=== PATIENT | male | born 1965 | race Caucasian/White ===

== ENCOUNTER 2018-03-04 22:17 | Observation (INO) | payer BC ==
[2018-03-04] MEDS ORDERED: PROVENTIL 2.5 MG/3 ML NEB IH ONE ×4 (22:27→23:52)
[2018-03-04 22:35] LABS: BASOPHIL % 0.7 % (0.0-0.4); Basophil (Absolute #) 0.06 (0-0.4); Eosinophil % 0.7 % (0.00-5.0); Eosinophil (Absolute #) 0.06 (0-0.5); Granulocyte Absolute (ANC) 4.37 (1.4-6.9); Granulocytes % 47.4 % (36.0-66.0); Hematocrit 51.2 % (42-50); Hemoglobin 17.9 gm/dl (12.5-18.0); Lymphocyte (Absolute #) 3.96 (1.0-4.6); Lymphocytes % 43.1 % (24.0-44.0); Mean Platelet Volume 10.6 fl (6-9.5); Monocyte (Absolute #) 0.74 (0.0-1.3); Monocytes % 8.1 % (0.0-12.0); Platelet Count 206 K/mm3 (150-450); Red Blood Count 5.69 M/mm3 (4.1-5.6); Red Cell Distribution Width 12.7 % (11.5-14.0); White Blood Count 9.2 K/mm3 (4.0-10.5)
[2018-03-04] MEDS: Sodium Chloride 0.9% 1000 ML 1,000 ML IV SCH (22:36)
--- NOTE | 2018-03-04 22:43 | ERPHSYRPT ---
- History of Present Illness Time Seen by Provider: 03/04/18 22:39 Source: patient Exam Limitations: no limitations Patient Subjective Stated Complaint: SOB at night x2 days Triage Nursing Assessment: pt is alert and oriented. pt is ambulatory. pt has audible wheezes and pt has wheezing and crackles posteriorly. pt is tachycardic and irregular. pt has a swollen left leg and ankle pitting edema x1. Physician History: 52-year-old male came to the emergency room with complaining of shortness of breath for last 2 days. He should has been recently diagnosed with hemochromatosis and for which patient has been undergoing blood letting. Patient is also complaining of palpitation and shortness of breath, but denies any heavy pressure type of chest pain. Patient also denies fevers, chills, nausea or vomiting. Timing/Duration: day(s) Activities at Onset: none Severity of Dyspnea-Max: moderate Severity of Dyspnea-Current: moderate Possible Cause: frequent episodes Associated Symptoms: wheezing, ankle swelling, leg swelling International travel in last 2 weeks: No Allergies/Adverse Reactions: No Known Drug Allergies Allergy (Unverified 03/04/18 22:34) Home Medications: Aspirin EC 81 mg [Ecotrin 81 mg] 81 mg PO DAILY 03/04/18 [History] Atorvastatin Calcium 40 mg PO DAILY 03/04/18 [History] Dulaglutide [Trulicity] 1.5 ml IJ WEEKLY 03/04/18 [History] Metformin HCl 500 mg [Glucophage 500 MG] 1,000 mg PO BID 03/04/18 [History ] PANTOPRAZOLE 40 mg Tablet [Protonix 40MG Tablet] 40 mg PO DAILY 03/04/18 [ History] Paroxetine HCl [Paroxetine Cr] 37.5 mg PO DAILY 03/04/18 [History] Triamterene/Hydrochlorothiazid [Triamterene-Hctz 37.5-25 mg Cp] 1 each PO DAILY 03/04/18 [History] Hx Tetanus, Diphtheria Vaccination/Date Given: Yes Hx Influenza Vaccination/Date Given: Yes Hx Pneumococcal Vaccination/Date Given: No Immunizations Up to Date: Yes - Review of Systems Constitutional: No Fever, No Chills Eyes: No Symptoms Ears, Nose, & Throat: No Symptoms Respiratory: Dyspnea, Dyspnea on Exertion (LIN), Wheezing, No Cough Cardiac: Edema, No Chest Pain, No Syncope Abdominal/Gastrointestinal: No Abdominal Pain, No Nausea, No Vomiting, No Diarrhea Genitourinary Symptoms: No Dysuria Musculoskeletal: No Back Pain, No Neck Pain Skin: No Rash Neurological: No Dizziness, No Focal Weakness, No Sensory Changes Psychological: No Symptoms Endocrine: No Symptoms All Other Systems: Reviewed and Negative - Past Medical History Pertinent Past Medical History: Yes Neurological History: No Pertinent History ENT History: No Pertinent History Cardiac History: Hypertension Respiratory History: COPD Endocrine Medical History: Diabetes Type II Musculoskeletal History: Arthritis GI Medical History: No Pertinent History History: No Pertinent History Psycho-Social History: Anxiety Male Reproductive Disorders: No Pertinent History - Past Surgical History Past Surgical History: Yes Neuro Surgical History: No Pertinent History Cardiac: No Pertinent History Gastrointestinal: No Pertinent History Genitourinary: No Pertinent History Musculoskeletal: Orthopedic Surgery Male Surgical History: No Pertinent History Other Surgical History: left and right shoulder surgery. - Social History Smoking Status: Current every day smoker Drug Use: none - Nursing Vital Signs Nursing Vital Signs: Initial Vital Signs Temperature 97.4 F 03/04/18 22:18 Pulse Rate 154 H 03/04/18 22:18 Respiratory Rate 22 03/04/18 22:18 Blood Pressure 109/95 03/04/18 22:18 O2 Sat by Pulse Oximetry 96 03/04/18 22:18 Pain Scale Pain Intensity 0 - Physical Exam General Appearance: no apparent distress, alert Eye Exam: PERRL/EOMI Neck Exam: normal inspection, supple Respiratory Exam: diminished breath sounds, crackles/rales, rhonchi, wheezing Cardiovascular/Chest Exam: normal heart sounds, regular rate/rhythm, edema Abdominal/Gastrointestinal Exam: soft, No tenderness, No distention, No mass Extremity Exam: non-tender, normal range of motion, normal inspection, no calf tenderness, no pedal edema Neurologic Exam: alert, oriented x 3, cooperative, wood coater II-XII nml as tested, sensation nml, No motor deficits Skin Exam: normal color, warm, No dry SpO2 Interpretation: normal SpO2: 96 Oxygen Delivery: Nasal Cannula - Course Nursing assessment & vital signs reviewed: Yes EKG Interpreted by Me: A-fib Rhythm Strip: Atrial Fibrillation - Radiology Exams Chest X-ray Interpretation: Reviewed by me Ordered Tests: Active Orders 24 hr Category Date Time Status Corporate General Manager STAT Care 03/04/18 22:28 Active EKG-ER Only STAT Care 03/04/18 22:27 Active IV Insertion STAT Care 03/04/18 22:27 Active IV Insertion-2nd Peripheral STAT Care 03/04/18 23:15 Active Oxygen-ED Only NASAL CANNULA 2 lpm Care 03/04/18 22:27 Active CHEST 1 VIEW (PORTABLE) Stat Exams 03/04/18 22:27 Taken CHEST WITH CONTRAST [CT] Stat Exams 03/04/18 23:14 Ordered BLOOD CULTURE Stat Lab 03/04/18 22:45 Received CBC W DIFF Stat Lab 03/04/18 22:30 Completed CMP Stat Lab 03/04/18 22:30 Completed D-DIMER QUANTITATION Stat Lab 03/04/18 22:30 Completed Lactic Acid Stat Lab 03/04/18 22:44 Completed NT PRO BNP Stat Lab 03/04/18 22:30 Completed TROPONIN Q3H Lab 03/04/18 22:31 Completed TROPONIN Q3H Lab 03/05/18 01:30 Ordered TROPONIN Q3H Lab 03/05/18 04:30 Ordered TROPONIN Q3H Lab 03/05/18 07:30 Ordered TROPONIN Q3H Lab 03/05/18 10:30 Ordered UA W/ MICROSCOPIC Stat Lab 03/04/18 00:09 Completed Respiratory Nebulizer STAT RT 03/04/18 22:28 Completed Respiratory Nebulizer STAT RT 03/04/18 23:53 Completed Transfer Order Routine Transfer 03/05/18 Ordered Medication Summary Generic Name Dose Route Start Last Admin Trade Name Freq PRN Reason Stop Dose Admin Sodium Chloride 1,000 mls @ 100 mls/hr 03/04/18 22:30 03/04/18 22:36 Sodium Chloride 0.9% 1000 Ml IV 04/03/18 22:29 100 mls/hr .Q10H YANG Administration Diltiazem HCl 100 mls @ 5 mls/hr 03/05/18 00:32 Cardizem Drip 100 Mg/100 Ml D5w IV 04/04/18 00:31 .Q20H PRN HEART RATE/ A-FIB Protocol 5 MG/HR Discontinued Medications Generic Name Dose Route Start Last Admin Trade Name Freq PRN Reason Stop Dose Admin Albuterol Sulfate 2.5 mg 03/04/18 22:27 03/04/18 22:32 Proventil 2.5 Mg/3 Ml Neb IH 03/04/18 22:28 2.5 mg STAT ONE Administration Albuterol Sulfate Confirm 03/04/18 22:31 Proventil 2.5 Mg/3 Ml Neb Administered 03/04/18 22:32 Dose 2.5 mg IH .STK-MED ONE Albuterol Sulfate Confirm 03/04/18 23:29 Proventil 2.5 Mg/3 Ml Neb Administered 03/04/18 23:30 Dose 2.5 mg IH .STK-MED ONE Albuterol Sulfate 2.5 mg 03/04/18 23:52 03/05/18 00:23 Proventil 2.5 Mg/3 Ml Neb IH 03/04/18 23:53 2.5 mg STAT ONE Administration Diltiazem HCl 10 mg 03/04/18 22:47 03/04/18 22:54 Cardizem Iv 50 Mg/10 Ml IV 03/04/18 22:48 10 mg STAT ONE Administration Diltiazem HCl Confirm 03/04/18 22:50 Cardizem Iv 50 Mg/10 Ml Administered 03/04/18 22:51 Dose 50 mg IV .STK-MED ONE Lab/Rad Data: Laboratory Result Diagrams 03/04/18 22:30 03/04/18 22:30 Laboratory Results 03/04/18 03/04/18 03/04/18 Range/Units 22:44 22:31 22:30 WBC (4.0-10.5) K/mm3 RBC (4.1-5.6) M/mm3 Hgb (12.5-18.0) gm/dl Hct (42-50) % MCV (78-100) fl MCH (26-32) pg MCHC (32-36) g/dl RDW (11.5-14.0) % Plt Count (150-450) K/mm3 MPV (6-9.5) fl Gran % (36.0-66.0) % Eos # (Auto) (0-0.5) Absolute Lymphs (auto) (1.0-4.6) Absolute Monos (auto) (0.0-1.3) Lymphocytes % (24.0-44.0) % Monocytes % (0.0-12.0) % Eosinophils % (0.00-5.0) % Basophils % (0.0-0.4) % Absolute Granulocytes (1.4-6.9) Basophils # (0-0.4) D-Dimer 1311.17 H* (215-500) ng/mL Sodium (137-145) mmol/L Potassium (3.5-5.1) mmol/L Chloride (98-107) mmol/L Carbon Dioxide (22-30) mmol/L Anion Gap (5-15) MEQ/L BUN (9-20) mg/dL Creatinine (0.66-1.25) mg/dL Estimated GFR ML/MIN Glucose (74-106) mg/dL Lactic Acid 2.6 H (0.4-2.0) Calcium (8.4-10.2) mg/dL Total Bilirubin (0.2-1.3) mg/dL AST (17-59) U/L ALT (0-50) U/L Alkaline Phosphatase (38-126) U/L Troponin I 0.024 (0.000-0.034) ng/mL NT-Pro-B Natriuret Pep (0-900) pg/mL Serum Total Protein (6.3-8.2) g/dL Albumin (3.5-5.0) g/dL Ur Collection Type Urine Color (YELLOW) Urine Appearance (CLEAR) Urine pH (5-6) Ur Specific [place] (1.005-1.025) Urine Protein (Negative) Urine Ketones (NEGATIVE) Urine Blood (0-5) Jose/ul Urine Nitrite (NEGATIVE) Urine Bilirubin (NEGATIVE) Urine Urobilinogen (0-1) mg/dL Ur Leukocyte Esterase (NEGATIVE) Urine Microscopic RBC (0-2) /HPF Urine Microscopic WBC (0-5) /HPF Urine Bacteria (NEGATIVE) /HPF Urine Culture Reflexed (NO) Urine Glucose (NEGATIVE) mg/dL Specimen Received 03/04/18 03/04/18 03/04/18 Range/Units 22:30 22:30 00:09 WBC 9.2 (4.0-10.5) K/mm3 RBC 5.69 H (4.1-5.6) M/mm3 Hgb 17.9 (12.5-18.0) gm/dl Hct 51.2 H (42-50) % MCV 90.0 (78-100) fl MCH 31.4 (26-32) pg MCHC 35.0 (32-36) g/dl RDW 12.7 (11.5-14.0) % Plt Count 206 (150-450) K/mm3 MPV 10.6 H (6-9.5) fl Gran % 47.4 (36.0-66.0) % Eos # (Auto) 0.06 (0-0.5) Absolute Lymphs (auto) 3.96 (1.0-4.6) Absolute Monos (auto) 0.74 (0.0-1.3) Lymphocytes % 43.1 (24.0-44.0) % Monocytes % 8.1 (0.0-12.0) % Eosinophils % 0.7 (0.00-5.0) % Basophils % 0.7 (0.0-0.4) % Absolute Granulocytes 4.37 (1.4-6.9) Basophils # 0.06 (0-0.4) D-Dimer (215-500) ng/mL Sodium 126 L (137-145) mmol/L Potassium 4.0 (3.5-5.1) mmol/L Chloride 91 L (98-107) mmol/L Carbon Dioxide 20 L (22-30) mmol/L Anion Gap 18.1 H (5-15) MEQ/L BUN 8 L (9-20) mg/dL Creatinine 0.64 L (0.66-1.25) mg/dL Estimated GFR > 60.0 ML/MIN Glucose 122 H (74-106) mg/dL Lactic Acid (0.4-2.0) Calcium 8.8 (8.4-10.2) mg/dL Total Bilirubin 0.70 (0.2-1.3) mg/dL AST 33 (17-59) U/L ALT 24 (0-50) U/L Alkaline Phosphatase 70 (38-126) U/L Troponin I (0.000-0.034) ng/mL NT-Pro-B Natriuret Pep 3380 H (0-900) pg/mL Serum Total Protein 7.3 (6.3-8.2) g/dL Albumin 4.0 (3.5-5.0) g/dL Ur Collection Type VOID Urine Color YELLOW (YELLOW) Urine Appearance CLEAR (CLEAR) Urine pH 6.0 (5-6) Ur Specific [place] 1.010 (1.005-1.025) Urine Protein TRACE (Negative) Urine Ketones NEGATIVE (NEGATIVE) Urine Blood NEGATIVE (0-5) Jose/ul Urine Nitrite NEGATIVE (NEGATIVE) Urine Bilirubin NEGATIVE (NEGATIVE) Urine Urobilinogen NORMAL (0-1) mg/dL Ur Leukocyte Esterase NEGATIVE (NEGATIVE) Urine Microscopic RBC 2-5 (0-2) /HPF Urine Microscopic WBC 0-2 (0-5) /HPF Urine Bacteria FEW (NEGATIVE) /HPF Urine Culture Reflexed NO (NO) Urine Glucose NEGATIVE (NEGATIVE) mg/dL Specimen Received 03/04/18 2350 - Progress Progress: improved Air Movement: good Blood Culture(s) Obtained: No Antibiotics given: No Discussed with : Nano Henson Will see patient in: hospital (observation) Counseled pt/family regarding: lab results, diagnosis, need for follow-up, rad results - Departure Time of Disposition: 00:56 Departure Disposition: Observation Clinical Impression: COPD (chronic obstructive pulmonary disease) with acute bronchitis Atrial fibrillation Qualifiers: Atrial fibrillation type: paroxysmal Qualified Code(s): I48.0 - Paroxysmal atrial fibrillation Condition: Fair Critical Care Time: Yes Critical Care Time(excluding separately billable procedures): 30-74 minutes Referrals: BAYLEE RUIZ [Primary Care Provider] - Instructions: Chronic Obstructive Pulmonary Disease
[2018-03-04 22:46] LABS: Mean Corpuscular Hemoglobin 31.4 pg (26-32)
[2018-03-04] MEDS ORDERED: Cardizem IV 50 MG/10 ML IV ONE ×2 (22:47→22:50)
[2018-03-04 22:50] LABS: Lactic Acid 2.6 (0.4-2.0)
[2018-03-04 22:53] LABS: ALKALINE PHOSPHATASE 70 U/L (38-126); ANION GAP 18.1 MEQ/L (5-15); BLOOD UREA NITROGEN 8 mg/dL (9-20); CHLORIDE 91 mmol/L (98-107); Calcium 8.8 mg/dL (8.4-10.2); Carbon Dioxide 20 mmol/L (22-30); Creatinine 1 0.64 mg/dL (0.66-1.25); Glucose 122 mg/dL (74-106); SGOT/AST 33 U/L (17-59); SGPT/ALT 24 U/L (0-50); SODIUM 126 mmol/L (137-145); Total Protein 7.3 g/dL (6.3-8.2)
[2018-03-04 23:02] LABS: NT PRO BNP 3380 pg/mL (0-900)
[2018-03-05 00:22] LABS: Appearance CLEAR (CLEAR); Bilirubin NEGATIVE (NEGATIVE); Blood NEGATIVE Ery/ul (0-5); Glucose NEGATIVE (NEGATIVE); Ketones NEGATIVE (NEGATIVE); Leukocyte Esterase NEGATIVE (NEGATIVE); Nitrite NEGATIVE (NEGATIVE); Protein,Urine Dip TRACE (Negative); Urobilinogen NORMAL mg/dL (0-1); WBC 0-2 /HPF (0-5)
[2018-03-05 00:23] LABS: Bacteria FEW /HPF (NEGATIVE)
[2018-03-05] MEDS ORDERED: CARDIZEM DRIP 100 MG/100 ML D5W 100 ML IV PRN (00:32)
[2018-03-05 01:20] LABS: Lactic Acid 2.4 (0.4-2.0)
[2018-03-05] MEDS ORDERED: PROVENTIL Solution 2.5 MG/0.5 ML IH ONE (02:36)
[2018-03-05] MEDS: Sodium Chloride 0.9% 1000 ML 1,000 ML IV SCH ×4 (03:19→18:58)
[2018-03-05 04:52] LABS: Lactic Acid 2.4 (0.4-2.0)
[2018-03-05 05:17] LABS: ALBUMIN 3.4 g/dL (3.5-5.0); ALKALINE PHOSPHATASE 57 U/L (38-126); ANION GAP 16.3 MEQ/L (5-15); BLOOD UREA NITROGEN 8 mg/dL (9-20); CHLORIDE 97 mmol/L (98-107); Calcium 8.2 mg/dL (8.4-10.2); Carbon Dioxide 21 mmol/L (22-30); Creatinine 1 0.64 mg/dL (0.66-1.25); Glucose 111 mg/dL (74-106); Potassium 3.4 mmol/L (3.5-5.1); SGOT/AST 28 U/L (17-59); SGPT/ALT 21 U/L (0-50); SODIUM 131 mmol/L (137-145); Total Protein 6.4 g/dL (6.3-8.2)
[2018-03-05 05:24] LABS: PREALBUMIN 16.97 mg/dL (17.6-36.0)
[2018-03-05 05:46] LABS: BASOPHIL % 0.7 % (0.0-0.4); Basophil (Absolute #) 0.05 (0-0.4); Eosinophil (Absolute #) 0.07 (0-0.5); Granulocyte Absolute (ANC) 2.76 (1.4-6.9); Granulocytes % 37.7 % (36.0-66.0); Hematocrit 48.3 % (42-50); Hemoglobin 16.6 gm/dl (12.5-18.0); Lymphocyte (Absolute #) 3.78 (1.0-4.6); Lymphocytes % 51.6 % (24.0-44.0); Mean Cell Volume 91.5 fl (78-100); Mean Corpuscular Hemoglobin 31.4 pg (26-32); Mean Corpuscular Hgb Concent. 34.4 g/dl (32-36); Mean Platelet Volume 10.9 fl (6-9.5); Monocyte (Absolute #) 0.66 (0.0-1.3); Platelet Count 181 K/mm3 (150-450); Red Blood Count 5.28 M/mm3 (4.1-5.6); Red Cell Distribution Width 12.6 % (11.5-14.0); White Blood Count 7.3 K/mm3 (4.0-10.5)
[2018-03-05] MEDS ORDERED: DUONEB 0.5-3 MG/3 ml Neb IH SCH (07:00)
[2018-03-05] MEDS: PROVENTIL COMMON CANISTER IH SCH ×4 (07:46→18:58)
[2018-03-05] MEDS: Spiriva 18 Mcg/Cap Inhaler IH SCH (07:46)
[2018-03-05] MEDS: ELIQUIS 5 MG TABLET PO SCH ×2 (08:12→21:01)
[2018-03-05] MEDS: ROCEPHIN 1 Gm-D5w 50 ml Bag** 1 G/50 ML IVPB IV SCH (08:12)
[2018-03-05] MEDS: Maxzide-25MG Tablet PO SCH (09:48)
[2018-03-05] MEDS: ECOTRIN 81 MG PO SCH (09:48)
[2018-03-05] MEDS: Paxil 12.5MG CR PO SCH (09:48)
[2018-03-05] MEDS ORDERED: MEDICATION INTERVENTION MC SCH (10:00)
[2018-03-05] MEDS ORDERED: ENOXAPARIN SODIUM SQ SCH (10:00)
[2018-03-05] MEDS ORDERED: PROTONIX 40 MG IV IV SCH (10:00)
[2018-03-05] MEDS ORDERED: Cardizem CD 120 MG PO SCH (10:00)
[2018-03-05] MEDS ORDERED: LIPITOR 40MG PO SCH (10:00)
[2018-03-05] MEDS ORDERED: NON-FORMULARY ITEM (Triamterene/Hydrochlorothiazid [Triamterene-Hctz 37.5-25 Mg Cp] 1 EACH PO SCH (10:00)
[2018-03-05] MEDS ORDERED: Glucophage 500 MG PO SCH (10:00)
--- NOTE | 2018-03-05 12:38 | XRAY ---
Indication: Short of breath. Comparison: None Portable chest demonstrates lingular subsegmental atelectasis/scarring, tiny bibasilar effusions, and left upper lobe calcified granulomas. Heart is not enlarged. Bony thorax intact with right glenoid orthopedic screw. Impression: Tiny nonspecific bibasilar effusions without cardiomegaly. Evidence for old granulomatous disease.
--- NOTE | 2018-03-05 12:38 | XRAY ---
Indication: Short of breath 2 weeks. Elevated d-dimer. History COPD. Multiple contiguous axial images obtained through the chest using 80 cc Isovue 370 contrast and PE protocol. Comparison: None There is satisfactory opacification of the pulmonary arteries including the lobar and segmental branches. No filling defect or pulmonary embolus. Heart is not enlarged. Aorta is normal in course and caliber. A few tiny mediastinal and left hilar calcified nodes. No pathologic mediastinal/hilar lymphadenopathy. Small hiatal hernia. Examination of the lung parenchyma demonstrates minimal septal thickening, small bilateral pleural effusions, and bibasilar dependent atelectasis. A few tiny left upper lobe calcified granulomas. 4-5 mm noncalcified nodule in the posterior left upper lobe also presumed granulomatous. Bony thorax intact with right glenoid orthopedic screw. Limited upper abdomen demonstrates fatty liver. Impression: 1. Negative pulmonary embolus. 2. Small nonspecific bilateral pleural effusions without cardiomegaly. 3. Evidence for old granulomatous disease. 4. Small hiatal hernia and fatty liver. Comment: Preliminary interpretation was made by [facility]. No critical discrepancy. CTDI 28.13
[2018-03-05] MEDS: NICODERM CQ 14 MG TOP SCH (14:26)
[2018-03-05] MEDS: Ativan 1 MG PO PRN ×2 (15:20→21:01)
[2018-03-05] MEDS: Cardizem CD 240 MG PO SCH (15:20)
[2018-03-05] MEDS ORDERED: PATIENT OWN MEDICATION SQ SCH (16:15)
[2018-03-05] MEDS ORDERED: TYLENOL EXTRA STRENGTH 500 MG PO PRN (18:21)
--- NOTE | 2018-03-05 20:16 | PCM.HP ---
History of Present Illness - Chief Complaint Chief Complaint: Shortness of Breath for 2-3 days History of Present Illness: is a 52 year old male came to the emergency room with complaining of shortness of breath for last 2 days. He should has been recently diagnosed with hemochromatosis and for which patient has been undergoing blood letting. Patient is also complaining of palpitation and shortness of breath, but denies any heavy pressure type of chest pain. Patient also denies fevers, chills, nausea or vomiting. Timing/Duration: day(s) Activities at Onset: none Severity of Dyspnea-Max: moderate Severity of Dyspnea-Current: moderate Possible Cause: frequent episodes Associated Symptoms: wheezing, ankle swelling, leg swelling - Review of Systems Constitutional: Fatigue, No Fever, No Chills Eyes: No Symptoms Ears, Nose, & Throat: No Symptoms Respiratory: Orthopnea, Short Of Breath, No Cough Cardiac: Palpitations, No Chest Pain, No Edema, No Syncope Abdominal/Gastrointestinal: No Abdominal Pain, No Nausea, No Vomiting, No Diarrhea Genitourinary Symptoms: No Dysuria Musculoskeletal: No Back Pain, No Neck Pain Skin: No Rash Neurological: No Dizziness, No Focal Weakness, No Sensory Changes Psychological: No Symptoms Endocrine: No Symptoms Hematologic/Lymphatic: No Symptoms Immunological/Allergic: No Symptoms Medications & Allergies Home Medications: Home Medication List Aspirin EC 81 mg [Ecotrin 81 mg] 81 mg PO DAILY 03/04/18 [History Confirmed 03/04/18] Atorvastatin Calcium 40 mg PO DAILY 03/04/18 [History Confirmed 03/04/18] Dulaglutide [Trulicity] 1.5 ml IJ WEEKLY 03/04/18 [History Confirmed 03/05/18] Metformin HCl 500 mg [Glucophage 500 MG] 1,000 mg PO BID 03/04/18 [ History Confirmed 03/04/18] PANTOPRAZOLE 40 mg Tablet [Protonix 40MG Tablet] 40 mg PO DAILY 03/04/18 [ History Confirmed 03/04/18] Paroxetine HCl [Paroxetine Cr] 37.5 mg PO DAILY 03/04/18 [History Confirmed 03/17] Triamterene/Hydrochlorothiazid [Triamterene-Hctz 37.5-25 mg Cp] 1 each PO DAILY 03/04/18 [History Confirmed 03/04/18] Allergies/Adverse Reactions: Allergies Allergy/AdvReac Type Severity Reaction Status Date / Time No Known Drug Allergies Allergy Unverified 03/04/18 22:34 - Past Medical History Past Medical History: Yes Neurological History: No Pertinent History ENT History: No Pertinent History Cardiac History: Hypertension Respiratory History: COPD Endocrine Medical History: Diabetes Type II Musculoskelatal History: Arthritis GI Medical History: GERD History: No Pertinent History Pyscho-Social History: Anxiety Male Reproductive Disorders: No Pertinent History - Past Surgical History Past Surgical History: Yes Neuro Surgical History: No Pertinent History Cardiac History: No Pertinent History Respiratory Surgery: No Pertinent History GI Surgical History: No Pertinent History Genitourinary Surgical Hx: No Pertinent History Musculskeletal Surgical Hx: Orthopedic Surgery Male Surgical History: No Pertinent History Other Surgical History: left and right shoulder surgery - Social History Smoking Status: Current every day smoker How long have you smoked: 20 years Alcohol: Daily Drug Use: none - Physical Exam Vital Signs: Vital Signs - 24 hr Temp Pulse Resp BP BP Pulse Ox 03/05/18 20:00 101 H 03/05/18 19:58 98.2 F 101 H 23 134/90 94 L 03/05/18 18:59 100 H 28 H 94 L 03/05/18 18:50 88 21 119/79 92 L 03/05/18 17:56 112 H 21 130/93 93 L 03/05/18 17:00 94 H 19 116/83 91 L 03/05/18 16:00 96 H 19 164/73 94 L 03/05/18 15:42 96 H 18 95 03/05/18 15:00 92 H 21 133/78 93 L 03/05/18 14:00 99 H 21 116/75 93 L 03/05/18 13:00 110 H 21 127/85 93 L 03/05/18 12:00 98 F 98 H 21 115/77 93 L 03/05/18 11:00 98 H 20 102/78 95 03/05/18 10:42 114 H 20 93 L 03/05/18 09:55 106 H 20 104/81 94 L 03/05/18 08:56 101 H 20 100/80 94 L 03/05/18 07:56 121 H 17 121/72 95 03/05/18 07:33 100 H 03/05/18 07:00 92 H 22 105/89 93 L 03/05/18 04:33 105 H 25 H 108/69 93 L 03/05/18 03:36 112 H 23 130/92 95 03/05/18 02:50 105 H 24 94 L 03/05/18 01:54 97.5 F 106 H 22 118/87 90 L 03/05/18 01:28 122 H 18 121/102 03/05/18 01:27 121 H 121/102 03/05/18 00:57 96 03/05/18 00:50 116/94 03/05/18 00:28 109 H 22 145/72 97 03/05/18 00:23 119 H 22 97 03/04/18 22:58 128 H 20 100/86 93 L 03/04/18 22:48 140 H 20 140/117 94 L 03/04/18 22:32 137 H 22 95 03/04/18 22:18 97.4 F 154 H 22 109/95 95 Oxygen-Last 24 hours O2 Percentage 3 Liters = 32% O2 Percentage 3 Liters = 32% O2 Percentage 3 Liters = 32% O2 Percentage 3 Liters = 32% O2 Percentage 3 Liters = 32% O2 Percentage 3 Liters = 32% O2 Percentage 3 Liters = 32% O2 Percentage 3 Liters = 32% O2 Percentage 3 Liters = 32% O2 Percentage 3 Liters = 32% O2 Percentage 3 Liters = 32% O2 Percentage 3 Liters = 32% O2 Percentage 4 Liters = 36% O2 Percentage 4 Liters = 36% O2 Percentage 4 Liters = 36% O2 Percentage 4 Liters = 36% O2 Percentage 3 Liters = 32% O2 Percentage 2 Liters = 28% O2 Percentage 2 Liters = 28% O2 Percentage 2 Liters = 28% General Appearance: no apparent distress, alert Neurologic Exam: alert, oriented x 3, cooperative, normal mood/affect, nml cerebellar function, nml station & gait, sensation nml, No motor deficits Eye Exam: PERRL/EOMI, eyes nml inspection Ears, Nose, Throat Exam: normal ENT inspection, TMs normal, pharynx normal, moist mucous membranes Neck Exam: normal inspection, non-tender, supple, full range of motion Respiratory Exam: normal breath sounds, wheezing, No respiratory distress Cardiovascular Exam: regular rate/rhythm, normal peripheral pulses, tachycardia , irregular Gastrointestinal/Abdomen Exam: soft, normal bowel sounds, No tenderness, No mass Back Exam: normal inspection, normal range of motion, No CVA tenderness, No vertebral tenderness Extremity Exam: normal inspection, normal range of motion, pelvis stable Skin Exam: normal color, warm, dry, No rash Lymphatic Exam: No adenopathy Results - Labs Lab/Micro Results: Accuchecks Date 03/05/18 Time 20:01 Accucheck Value: 100 Lab Results-Last 24 Hours 03/05/18 03/05/18 03/05/18 Range/Units 04:45 04:50 04:50 WBC 7.3 (4.0-10.5) K/mm3 RBC 5.28 (4.1-5.6) M/mm3 Hgb 16.6 (12.5-18.0) gm/dl Hct 48.3 (42-50) % MCV 91.5 (78-100) fl MCH 31.4 (26-32) pg MCHC 34.4 (32-36) g/dl RDW 12.6 (11.5-14.0) % Plt Count 181 (150-450) K/mm3 MPV 10.9 H (6-9.5) fl Gran % 37.7 (36.0-66.0) % Eos # (Auto) 0.07 (0-0.5) Absolute Lymphs (auto) 3.78 (1.0-4.6) Absolute Monos (auto) 0.66 (0.0-1.3) Lymphocytes % 51.6 H (24.0-44.0) % Monocytes % 9.0 (0.0-12.0) % Eosinophils % 1.0 (0.00-5.0) % Basophils % 0.7 (0.0-0.4) % Absolute Granulocytes 2.76 (1.4-6.9) Basophils # 0.05 (0-0.4) Sodium (137-145) mmol/L Potassium (3.5-5.1) mmol/L Chloride (98-107) mmol/L Carbon Dioxide (22-30) mmol/L Anion Gap (5-15) MEQ/L BUN (9-20) mg/dL Creatinine (0.66-1.25) mg/dL Estimated GFR ML/MIN Glucose (74-106) mg/dL Lactic Acid 2.4 H (0.4-2.0) Calcium (8.4-10.2) mg/dL Total Bilirubin (0.2-1.3) mg/dL AST (17-59) U/L ALT (0-50) U/L Alkaline Phosphatase (38-126) U/L Troponin I 0.023 (0.000-0.034) ng/mL Serum Total Protein (6.3-8.2) g/dL Albumin (3.5-5.0) g/dL Prealbumin (17.6-36.0) mg/dL 03/05/18 03/05/18 03/05/18 Range/Units 04:50 07:30 10:32 WBC (4.0-10.5) K/mm3 RBC (4.1-5.6) M/mm3 Hgb (12.5-18.0) gm/dl Hct (42-50) % MCV (78-100) fl MCH (26-32) pg MCHC (32-36) g/dl RDW (11.5-14.0) % Plt Count (150-450) K/mm3 MPV (6-9.5) fl Gran % (36.0-66.0) % Eos # (Auto) (0-0.5) Absolute Lymphs (auto) (1.0-4.6) Absolute Monos (auto) (0.0-1.3) Lymphocytes % (24.0-44.0) % Monocytes % (0.0-12.0) % Eosinophils % (0.00-5.0) % Basophils % (0.0-0.4) % Absolute Granulocytes (1.4-6.9) Basophils # (0-0.4) Sodium 131 L (137-145) mmol/L Potassium 3.4 L (3.5-5.1) mmol/L Chloride 97 L (98-107) mmol/L Carbon Dioxide 21 L (22-30) mmol/L Anion Gap 16.3 H (5-15) MEQ/L BUN 8 L (9-20) mg/dL Creatinine 0.64 L (0.66-1.25) mg/dL Estimated GFR > 60.0 ML/MIN Glucose 111 H (74-106) mg/dL Lactic Acid (0.4-2.0) Calcium 8.2 L (8.4-10.2) mg/dL Total Bilirubin 0.60 (0.2-1.3) mg/dL AST 28 (17-59) U/L ALT 21 (0-50) U/L Alkaline Phosphatase 57 (38-126) U/L Troponin I 0.018 0.017 (0.000-0.034) ng/mL Serum Total Protein 6.4 (6.3-8.2) g/dL Albumin 3.4 L (3.5-5.0) g/dL Prealbumin 16.97 L (17.6-36.0) mg/dL Accuchecks Date 03/05/18 Time 20:01 Accucheck Value: 100 - Other Procedures and Tests Respiratory Therapy 03/05/18 02:23 Oxygen NASAL CANNULA 3 lpm Respiratory Nebulizer PRN 03/05/18 02:24 BiPap/CPAP Assessment ROUTINE 03/05/18 07:00 Respiratory MDI QID 03/05/18 10:00 Respiratory MDI DAILY Assessment/Plan (1) Atrial fibrillation Current Visit: Yes Status: Acute Qualifiers: Atrial fibrillation type: paroxysmal Qualified Code(s): I48.0 - Paroxysmal atrial fibrillation Code(s): I48.91 - UNSPECIFIED ATRIAL FIBRILLATION (2) COPD (chronic obstructive pulmonary disease) with acute bronchitis Current Visit: Yes Status: Acute Code(s): J44.0 - CHRONIC OBSTRUCTIVE PULMON DISEASE W ACUTE LOWER RESP INFCT; J20.9 - ACUTE BRONCHITIS, UNSPECIFIED (3) Type 2 diabetes mellitus Current Visit: Yes Status: Acute Qualifiers: Diabetes mellitus complication status: with hypoglycemia Diabetes mellitus complication detail: without coma (4) History of hemochromatosis Current Visit: Yes Status: Chronic Code(s): Z86.39 - PERSONAL HISTORY OF ENDO, NUTRITIONAL AND METABOLIC DISEASE
[2018-03-05] MEDS: ZOCOR 20MG PO SCH (21:02)
[2018-03-06] MEDS: Sodium Chloride 0.9% 1000 ML 1,000 ML IV SCH ×3 (04:03→20:19)
[2018-03-06] MEDS: PROVENTIL 2.5 MG/3 ML NEB IH PRN ×3 (06:32→14:34)
[2018-03-06] MEDS: Spiriva 18 Mcg/Cap Inhaler IH SCH (06:33)
[2018-03-06] MEDS: PROVENTIL COMMON CANISTER IH SCH ×3 (06:33→14:34)
[2018-03-06] MEDS: Ativan 1 MG PO PRN ×4 (06:39→21:51)
[2018-03-06 08:21] LABS: Hematocrit 49.4 % (42-50); Hemoglobin 16.5 gm/dl (12.5-18.0); Mean Cell Volume 93.2 fl (78-100); Mean Corpuscular Hemoglobin 31.1 pg (26-32); Mean Corpuscular Hgb Concent. 33.4 g/dl (32-36); Mean Platelet Volume 11.1 fl (6-9.5); Platelet Count 156 K/mm3 (150-450); Red Cell Distribution Width 12.8 % (11.5-14.0); White Blood Count 7.7 K/mm3 (4.0-10.5)
[2018-03-06] MEDS: Maxzide-25MG Tablet PO SCH (09:11)
[2018-03-06] MEDS: ECOTRIN 81 MG PO SCH (09:11)
[2018-03-06] MEDS: Cardizem CD 240 MG PO SCH (09:11)
[2018-03-06] MEDS: Protonix 40MG Tablet PO SCH (09:11)
[2018-03-06] MEDS: ROCEPHIN 1 Gm-D5w 50 ml Bag** 1 G/50 ML IVPB IV SCH (09:12)
[2018-03-06] MEDS: ELIQUIS 5 MG TABLET PO SCH ×2 (09:12→21:50)
[2018-03-06] MEDS: Paxil 12.5MG CR PO SCH (09:12)
[2018-03-06] MEDS: Zestril 5 MG PO SCH (09:42)
[2018-03-06] MEDS: Coreg 3.125 MG PO SCH ×2 (09:42→16:24)
[2018-03-06 09:54] LABS: ALBUMIN 3.4 g/dL (3.5-5.0); ALKALINE PHOSPHATASE 65 U/L (38-126); ANION GAP 12.4 MEQ/L (5-15); BLOOD UREA NITROGEN 11 mg/dL (9-20); CHLORIDE 100 mmol/L (98-107); Calcium 8.6 mg/dL (8.4-10.2); Carbon Dioxide 25 mmol/L (22-30); Creatinine 1 0.63 mg/dL (0.66-1.25); Glucose 128 mg/dL (74-106); Potassium 3.8 mmol/L (3.5-5.1); SGOT/AST 25 U/L (17-59); SGPT/ALT 20 U/L (0-50); SODIUM 135 mmol/L (137-145); Total Protein 6.5 g/dL (6.3-8.2)
[2018-03-06 10:02] LABS: NT PRO BNP 2130 pg/mL (0-900)
[2018-03-06 12:05] LABS: Risk Ratio 3.1
--- NOTE | 2018-03-06 12:38 | PCM.DS ---
Discharge Summary Date of Admission: 03/05/18 01:25 Admitting Physician: MAURILIO RUIZ Primary Care Provider: MAURILIO RUIZ Allergies Allergies No Known Drug Allergies Allergy (Unverified 03/04/18 22:34) Hospital Summary - Hospital Course Hospital Course: Chief Complaint Diagnosis Shortness of Breath for 2-3 days Allergies Allergy/AdvReac Type Severity Reaction Status Date / Time No Known Drug Allergies Allergy Unverified 03/04/18 22:34 Vital Signs (Last 24 hours) Temp Pulse Resp BP Pulse Ox 03/06/18 11:17 26 H 89 L 03/06/18 11:00 96.3 F 94 H 26 H 121/76 94 L 03/06/18 10:56 96 H 18 92 L 03/06/18 10:00 97.3 F 94 H 22 108/80 92 L 03/06/18 09:45 87 20 89 L 03/06/18 09:00 91 H 20 130/77 93 L 03/06/18 08:00 97.8 F 85 24 133/87 93 L 03/06/18 07:00 86 22 129/94 93 L 03/06/18 06:34 98 H 24 95 03/06/18 06:00 89 23 161/95 96 03/06/18 05:00 81 25 H 127/74 93 L 03/06/18 04:00 97.9 F 94 H 23 134/86 93 L 03/06/18 03:00 91 H 27 H 106/80 92 L 03/06/18 02:00 92 H 27 H 129/82 94 L 03/06/18 01:00 91 H 25 H 129/86 92 L 03/06/18 00:00 98.0 F 88 24 117/69 93 L 03/05/18 23:00 91 H 24 129/91 93 L 03/05/18 22:00 90 27 H 99/78 95 03/05/18 21:00 89 21 116/86 94 L 03/05/18 20:00 101 H 03/05/18 19:58 98.2 F 101 H 23 134/90 94 L 03/05/18 18:59 100 H 28 H 94 L 03/05/18 18:50 88 21 119/79 92 L 03/05/18 17:56 112 H 21 130/93 93 L 03/05/18 17:00 94 H 19 116/83 91 L 03/05/18 16:00 96 H 19 164/73 94 L 03/05/18 15:42 96 H 18 95 03/05/18 15:00 92 H 21 133/78 93 L 03/05/18 14:00 99 H 21 116/75 93 L 03/05/18 13:00 110 H 21 127/85 93 L Home Medications Medication Instructions Recorded Confirmed Last Taken Type Aspirin EC 81 mg [Ecotrin 81 81 mg PO DAILY 03/04/18 03/04/18 Unknown History mg] Atorvastatin Calcium 40 mg PO DAILY 03/04/18 03/04/18 Unknown History Dulaglutide [Trulicity] 1.5 ml IJ WEEKLY 03/04/18 03/05/18 02/24/18 21:00 History Metformin HCl 500 mg 1,000 mg PO BID 03/04/18 03/04/18 Unknown History [Glucophage 500 MG] PANTOPRAZOLE 40 mg Tablet 40 mg PO DAILY 03/04/18 03/04/18 Unknown History [Protonix 40MG Tablet] Paroxetine HCl [Paroxetine Cr] 37.5 mg PO DAILY 03/04/18 03/04/18 Unknown History Triamterene/Hydrochlorothiazid 1 each PO DAILY 03/04/18 03/04/18 Unknown History [Triamterene-Hctz 37.5-25 mg Cp] Current Medications Generic Name Dose Route Start Last Admin Trade Name Freq PRN Reason Stop Dose Admin Acetaminophen 1,000 mg 03/05/18 18:21 03/05/18 18:22 Tylenol Extra Strength 500 Mg PO 04/04/18 18:20 1,000 mg Q4H PRN PRN Administration HEADACHE Albuterol Sulfate 2 puff 03/05/18 07:00 03/06/18 10:53 Proventil Common Canister IH 04/04/18 06:59 Not Given QIDRT YANG Albuterol Sulfate 2.5 mg 03/05/18 02:23 03/06/18 10:52 Proventil 2.5 Mg/3 Ml Neb IH 04/04/18 02:22 2.5 mg Q4H PRN PRN Administration SHORTNESS OF BREATH/WHEEZING Apixaban 5 mg 03/05/18 10:00 03/06/18 09:12 Eliquis 5 Mg Tablet PO 04/04/18 09:59 5 mg BID YANG Administration Aspirin 81 mg 03/05/18 10:00 03/06/18 09:11 Ecotrin 81 Mg PO 04/04/18 09:59 81 mg DAILY YANG Administration Carvedilol 3.125 mg 03/06/18 10:00 03/06/18 09:42 Coreg 3.125 Mg PO 04/05/18 09:59 3.125 mg BIDWMEALS YANG Administration Diltiazem HCl 240 mg 03/05/18 15:00 03/06/18 09:11 Cardizem Cd 240 Mg PO 04/04/18 14:59 240 mg DAILY YANG Administration Sodium Chloride 1,000 mls @ 100 mls/hr 03/04/18 22:30 03/06/18 04:03 Sodium Chloride 0.9% 1000 Ml IV 04/03/18 22:29 100 mls/hr .Q10H YANG Administration Ceftriaxone Sodium/Dextrose 1 g in 50 mls @ 100 mls/hr 03/05/18 10:00 09:12 Rocephin 1 Gm-D5w 50 Ml Bag IV 04/04/18 09:59 100 mls/hr Q24H10 YANG Administration Sodium Chloride 1,000 mls @ 100 mls/hr 03/05/18 01:31 03/05/18 15:04 Sodium Chloride 0.9% 1000 Ml IV 04/04/18 01:30 Not Given .Q10H YANG Lisinopril 2.5 mg 03/06/18 10:00 03/06/18 09:42 Zestril 5 Mg PO 04/05/18 09:59 2.5 mg DAILY YANG Administration Lorazepam 1 mg 03/05/18 14:54 03/06/18 06:39 Ativan 1 Mg PO 04/04/18 14:53 1 mg Q6H PRN PRN Administration ANXIETY Metformin HCl 1,000 mg 03/07/18 08:00 Glucophage 500 Mg PO 04/06/18 07:59 BIDWMEALS YANG Nicotine 14 mg 03/05/18 14:15 03/05/18 14:26 Nicoderm Cq 14 Mg TOP 04/04/18 14:14 14 mg Q24H YANG Administration Pantoprazole Sodium 40 mg 03/06/18 10:00 03/06/18 09:11 Protonix 40mg Tablet PO 04/05/18 09:59 40 mg DAILY YANG Administration Paroxetine HCl 37.5 mg 03/05/18 10:00 03/06/18 09:12 Paxil 12.5mg Cr PO 04/04/18 09:59 37.5 mg DAILY YANG Administration Patient Own Med ( 0 each 03/05/18 16:15 03/05/18 16:10 Trulicity) SQ 04/04/18 16:14 1 each Q7D YANG Administration Simvastatin 40 mg 03/05/18 22:00 03/05/18 21:02 Zocor 20mg PO 04/04/18 21:59 40 mg HS YANG Administration Tiotropium [place]isco[place] 1 ea 03/05/18 10:00 03/06/18 06:33 Spiriva 18 Mcg/Cap Inhaler IH 04/04/18 09:59 1 ea DAILY YANG Administration Triamterene/HCTZ 1 tab 03/05/18 10:00 03/06/18 09:11 Maxzide-25mg Tablet PO 04/04/18 09:59 1 tab DAILY YANG Administration Discontinued Medications Generic Name Dose Route Start Last Admin Trade Name Freq PRN Reason Stop Dose Admin Albuterol Sulfate 2.5 mg 03/04/18 22:27 03/04/18 22:32 Proventil 2.5 Mg/3 Ml Neb IH 03/04/18 22:28 2.5 mg STAT ONE Administration Albuterol Sulfate Confirm 03/04/18 22:31 Proventil 2.5 Mg/3 Ml Neb Administered 03/04/18 22:32 Dose 2.5 mg IH .STK-MED ONE Albuterol Sulfate Confirm 03/04/18 23:29 Proventil 2.5 Mg/3 Ml Neb Administered 03/04/18 23:30 Dose 2.5 mg IH .STK-MED ONE Albuterol Sulfate 2.5 mg 03/04/18 23:52 03/05/18 00:23 Proventil 2.5 Mg/3 Ml Neb IH 03/04/18 23:53 2.5 mg STAT ONE Administration Albuterol Sulfate Confirm 03/05/18 02:36 Proventil Solution 2.5 Mg/0.5 Ml Administered 03/05/18 02:37 Dose 2.5 mg IH .STK-MED ONE Albuterol/Ipratropium 3 ml 03/05/18 07:00 Duoneb 0.5-3 Mg/3 Ml Neb IH 04/04/18 06:59 QIDRT YANG Diltiazem HCl 10 mg 03/04/18 22:47 03/04/18 22:54 Cardizem Iv 50 Mg/10 Ml IV 03/04/18 22:48 10 mg STAT ONE Administration Diltiazem HCl Confirm 03/04/18 22:50 Cardizem Iv 50 Mg/10 Ml Administered 03/04/18 22:51 Dose 50 mg IV .STK-MED ONE Diltiazem HCl 120 mg 03/05/18 10:00 03/05/18 08:12 Cardizem Cd 120 Mg PO 04/04/18 09:59 120 mg DAILY YANG Administration Diltiazem HCl 240 mg 03/06/18 15:00 Cardizem Cd 240 Mg PO 04/05/18 14:59 DAILY YANG Enoxaparin Sodium 40 mg 03/05/18 10:00 Enoxaparin Sodium SQ 04/04/18 09:59 DAILY YANG Diltiazem HCl 100 mls @ 5 mls/hr 03/05/18 00:32 03/05/18 01:28 Cardizem Drip 100 Mg/100 Ml D5w IV 04/04/18 00:31 5 mg/hr .Q20H PRN 5 mls/hr HEART RATE/ A-FIB Administration Protocol 5 MG/HR Metformin HCl 1,000 mg 03/05/18 10:00 03/05/18 09:40 Glucophage 500 Mg PO 04/04/18 09:59 Not Given BIDWMEALS YANG Pantoprazole Sodium 40 mg 03/05/18 10:00 03/05/18 08:12 Protonix 40 Mg Iv IV 04/04/18 09:59 40 mg Q24H10 YANG Administration Intake & Output (Last 24 hours) 03/04/18 03/05/18 03/06/18 03/07/18 11:59 11:59 11:59 11:59 Intake Total 772 4257 Output Total 6820 3250 450 Balance -1908 1657 -450 Weight 126.2 kg 125.3 kg Microbiology Results (Last 24 hours) 03/04/18 22:45 Blood Blood Culture Gram Stain - Pending 03/04/18 22:45 Blood Blood Culture - Preliminary NO GROWTH TO DATE 03/04/18 22:30 Blood Blood Culture Gram Stain - Pending 03/04/18 22:30 Blood Blood Culture - Preliminary NO GROWTH TO DATE Laboratory Results (Last 24 hours) 03/06/18 03/06/18 08:17 08:17 WBC 7.7 RBC 5.30 Hgb 16.5 Hct 49.4 MCV 93.2 MCH 31.1 MCHC 33.4 RDW 12.8 Plt Count 156 MPV 11.1 H Sodium 135 L Potassium 3.8 Chloride 100 Carbon Dioxide 25 Anion Gap 12.4 BUN 11 Creatinine 0.63 L Estimated GFR > 60.0 Glucose 128 H Calcium 8.6 Total Bilirubin 1.10 AST 25 ALT 20 Alkaline Phosphatase 65 NT-Pro-B Natriuret Pep 2130 H Serum Total Protein 6.5 Albumin 3.4 L Orders (Last 24 hours) Category Date Time Status Miscellaneous Nursing Order ROUTINE Care 03/06/18 09:34 Active ECHO W/2D AND DOPPLER [US] Routine Exams 03/06/18 10:00 Taken BNP [NT PRO BNP] Routine Lab 03/06/18 08:17 Completed CBC Routine Lab 03/06/18 08:17 Completed CMP Routine Lab 03/06/18 08:17 Completed LIPID PROFILE Routine Lab 03/06/18 09:34 Ordered Acetaminophen 500 mg [Tylenol Extra Strength 500 mg* Med 03/05/18 18:21 Active ] 1,000 mg PO Q4H PRN PRN Carvedilol 3.125 mg [Coreg 3.125 MG] Med 03/06/18 10:00 Active 3.125 mg PO BIDWMEALS Diltiazem HCl 240 mg [Cardizem CD 240 MG] Med 03/05/18 15:00 Active 240 mg PO DAILY Diltiazem HCl 240 mg [Cardizem CD 240 MG] Med 03/06/18 15:00 Discontinued 240 mg PO DAILY Lisinopril 5 mg [Zestril 5 MG] Med 03/06/18 10:00 Active 2.5 mg PO DAILY Lorazepam 1 mg [Ativan 1 MG] Med 03/05/18 14:54 Active 1 mg PO Q6H PRN PRN Metformin HCl 500 mg [Glucophage 500 MG] Med 03/07/18 08:00 Active 1,000 mg PO BIDWMEALS Nicotine 14 mg [Nicoderm Cq 14 mg] Med 03/05/18 14:15 Active 14 mg TOP Q24H PANTOPRAZOLE 40 mg Tablet [Protonix 40MG Tablet] Med 03/06/18 10:00 Active 40 mg PO DAILY Patient Own Med [Patient Own Medication] Med 03/05/18 16:15 Active 0 each SQ Q7D Simvastatin 20Mg [Zocor 20Mg] Med 03/05/18 22:00 Active 40 mg PO HS Patient Care Notes (Last 24 hours) 03/06/18 11:52 Respiratory Note by Ailcia Reich 1100 N/C 2LPM AT REST SPO2 92%. TAKEN OFF O2 ROOM AIR AT REST SPO2 88%. PLACED BACK ON 2LPM SPO2 AT REST 92 Initialized on 03/06/18 11:52 - END OF NOTE 03/06/18 11:10 Nursing Note by Sania Clemons FROM [facility]ORY HERE DOING BREATHING TREATMENT, LEFT OXYGEN OFF AFTER TREATMENT AND AT THAT TIME, O2 SATS 95%. WITHIN 7 MINUTES DROPPED TO 88%, AYDE BACK AND PUT BACK ON 2LNC. PT SLEEPING SOUNDLY, EASILY ROUSED. FAMILY AT BEDSIDE. Initialized on 03/06/18 11:10 - END OF NOTE 03/06/18 10:21 Nursing Note by Sania Clemons RADIOLOGY U/S HERE DOING ECHO, SPOUSE IN ROOM. FAXED [employer] [facility] [employer] REQUESTED TO DR OWEN'S OFFICE FOR HIS APPOINTMENT ON 03/21/2018 AT 1530. Initialized on 03/06/18 10:21 - END OF NOTE 03/06/18 10:00 (created 03/06/18 10:04) Case Management Note by Cydney Randall DISCHARGE PLAN REVIEWED, PROVIDES SELF CARE, INDEPENDENT WITH ALL ADL'S. PLAN TO RETURN HOME WITH TO PRE EPISODIC LEVEL OF FNX. DECLINED ADDNL NEEDS FOR DISCHARGE. Initialized on 03/06/18 10:04 - END OF NOTE 03/06/18 09:45 (created 03/06/18 10:24) Nursing Note by Sania Clemons D/C THE IV CARDIZEM AT 0945 Initialized on 03/06/18 10:24 - END OF NOTE 03/06/18 02:24 Nursing Note by Mary Quarles 0200- Pt assisted to toilet. SOB noted with exertion. RT called for pt request of rescue inhaler. Pt states he has been doing this the last few nights at home. He says he gets SOB and then increased anxiety. Using the rescue inhaler does help at home per pt. Initialized on 03/06/18 02:24 - END OF NOTE 03/05/18 16:20 (created 03/05/18 17:27) Nursing Note by Iwona Deshpande pt says he feels much better since given ativan. Initialized on 03/05/18 17:27 - END OF NOTE 03/05/18 14:54 Nursing Note by Iwona Deshpande pt c/o anxiety. hr continues to increase to 110s-120s with activity. dr. ceja updated and new orders received for ativan and more cardizem po. Initialized on 03/05/18 14:54 - END OF NOTE 03/05/18 12:46 Nursing Note by Iwona Deshpande assisted to bathroom, hr up to 120s. loose bm noted. Initialized on 03/05/18 12:46 - END OF NOTE - Vitals & Intake/Output Vital Signs: Vital Signs Temperature 96.3 F 03/06/18 11:00 Pulse Rate 94 H 03/06/18 11:00 Respiratory Rate 26 H 03/06/18 11:17 Blood Pressure 121/76 03/06/18 11:00 O2 Sat by Pulse Oximetry 89 L 03/06/18 11:17 Oxygen-Last Documented O2 Percentage 2 Liters = 28% Intake & Output: Intake & Output 05/05/18 05/06/18 05/07/18 05/08/18 11:59 11:59 11:59 11:59 Intake Total 772 4257 Output Total 7711 5920 450 Balance -1908 1657 -450 Weight 126.2 kg 125.3 kg - Lab Result Diagrams: 03/06/18 08:17 03/06/18 08:17 Lab Results-Last 24 Hrs: Accuchecks Date 03/06/1803/05/18 Time 09:00 Time 20:01 Accucheck Value: 100 Lab Results-Last 24 Hours 03/06/18 03/06/18 Range/Units 08:17 08:17 WBC 7.7 (4.0-10.5) K/mm3 RBC 5.30 (4.1-5.6) M/mm3 Hgb 16.5 (12.5-18.0) gm/dl Hct 49.4 (42-50) % MCV 93.2 (78-100) fl MCH 31.1 (26-32) pg MCHC 33.4 (32-36) g/dl RDW 12.8 (11.5-14.0) % Plt Count 156 (150-450) K/mm3 MPV 11.1 H (6-9.5) fl Sodium 135 L (137-145) mmol/L Potassium 3.8 (3.5-5.1) mmol/L Chloride 100 (98-107) mmol/L Carbon Dioxide 25 (22-30) mmol/L Anion Gap 12.4 (5-15) MEQ/L BUN 11 (9-20) mg/dL Creatinine 0.63 L (0.66-1.25) mg/dL Estimated GFR > 60.0 ML/MIN Glucose 128 H (74-106) mg/dL Calcium 8.6 (8.4-10.2) mg/dL Total Bilirubin 1.10 (0.2-1.3) mg/dL AST 25 (17-59) U/L ALT 20 (0-50) U/L Alkaline Phosphatase 65 (38-126) U/L NT-Pro-B Natriuret Pep 2130 H (0-900) pg/mL Serum Total Protein 6.5 (6.3-8.2) g/dL Albumin 3.4 L (3.5-5.0) g/dL Micro Results-Entire Visit: Accuchecks Date 03/06/1803/05/18 Time 09:00 Time 20:01 Accucheck Value: 100 - Radiology Exams Ordered Rad Exams-Entire Visit: Radiology Procedures Category Date Time Status ECHO W/2D AND DOPPLER [US] Routine Exams 03/06/18 10:00 Taken - Procedures and Test Procedures and Tests throughout Hospitalization: Therapy Orders & Screens 03/05/18 02:23 Oxygen NASAL CANNULA 3 lpm Comment: Diagnosis: Shortness of Breath Respiratory Nebulizer PRN Comment: ALBUTEROL Q4PRN FOR SOB/WHEEZING Diagnosis: Shortness of Breath 03/05/18 02:24 BiPap/CPAP Assessment ROUTINE Comment: CPAP 12 AT NIGHT Diagnosis: Shortness of Breath Respiratory Therapy Consult ROUTINE Comment: Reason For Exam: Diagnosis: Shortness of Breath 03/05/18 02:26 Smoking Cessation Education ONCE Comment: Diagnosis: Shortness of Breath Smoking Status: Current every day smoker How long have you smoked: 20 years Have you smoked in the past 12 months: Yes Approximately how many cigarettes per day: 30 Do you dip or chew tobacco: No 03/05/18 07:00 Respiratory MDI QID Comment: ALBUTEROL 2 PUFFS QID Diagnosis: Shortness of Breath 03/05/18 07:15 EKG ROUTINE Comment: Diagnosis: Shortness of Breath 03/05/18 10:00 Respiratory MDI DAILY Comment: SPIRIVA 1 CAPSULE DAILY Diagnosis: Shortness of Breath Discharge Exam General Appearance: no apparent distress, alert Neurologic Exam: alert, oriented x 3, cooperative, normal mood/affect, nml cerebellar function, sensation nml, No motor deficits Skin Exam: normal color, warm, dry Eye Exam: PERRL, EOMI, eyes nml inspection Ears, Nose, Throat Exam: normal ENT inspection, pharynx normal, moist mucous membranes Neck Exam: normal inspection, non-tender, supple, full range of motion Respiratory Exam: normal breath sounds, lungs clear, No respiratory distress Cardiovascular Exam: regular rate/rhythm, normal heart sounds, normal peripheral pulses Gastrointestinal/Abdomen Exam: soft, No tenderness, No mass Extremity Exam: normal inspection, normal range of motion Back Exam: normal inspection, normal range of motion, No CVA tenderness, No vertebral tenderness Male Genitalia Exam: deferred Rectal Exam: deferred Final Diagnosis/Problem List - Final Discharge Diagnosis/Problem (1) Atrial fibrillation Current Visit: Yes Status: Acute Onset Date: ~03/05/18 (2) COPD (chronic obstructive pulmonary disease) with acute bronchitis Current Visit: Yes Status: Acute Onset Date: ~03/05/18 (3) Type 2 diabetes mellitus Current Visit: Yes Status: Chronic Onset Date: ~03/05/18 (4) History of hemochromatosis Current Visit: Yes Status: Chronic Onset Date: ~03/05/18 - Discharge Discharge Date: 03/07/18 Disposition: Home, Self-Care Condition: Fair Prescriptions: New Diltiazem HCl 240 mg [Cardizem CD 240 MG] 240 mg PO DAILY #30 cap Carvedilol 3.125 mg [Coreg 3.125 MG] 3.125 mg PO BIDWMEALS #60 tablet Apixaban [Eliquis 5 mg Tablet] 5 mg PO BID #60 tablet Methylprednisolone Packet [Medrol Dosepack] 4 mg PO UD #1 packet Nicotine 21 mg [Nicoderm CQ 21 MG] 21 mg TOP DAILY #14 patch Pravastatin Sodium 40 mg PO HS #30 tablet Albuterol Common Canister [Proventil Common Canister] 2 puff IH Q4HPRN PRN #1 canister PRN Reason: Shortness Of Breath Lisinopril 5 mg [Zestril 5 MG] 2.5 mg PO DAILY #30 tablet Diazepam [Valium] 5 mg PO Q8HPRN PRN #30 tablet MDD 3 PRN Reason: Anxiety Continue Aspirin EC 81 mg [Ecotrin 81 mg] 81 mg PO DAILY Triamterene/Hydrochlorothiazid [Triamterene-Hctz 37.5-25 mg Cp] 1 each PO DAILY Metformin HCl 500 mg [Glucophage 500 MG] 1,000 mg PO BID Paroxetine HCl [Paroxetine Cr] 37.5 mg PO DAILY PANTOPRAZOLE 40 mg Tablet [Protonix 40MG Tablet] 40 mg PO DAILY Dulaglutide [Trulicity] 1.5 ml IJ WEEKLY Discontinued Atorvastatin Calcium 40 mg PO DAILY Instructions: Atrial Fibrillation (DC), Heart Failure, Adult (DC), Quitting Smoking, Exacerbation of COPD (DC), Alcohol Withdrawal (DC) Additional Instructions: FOLLOWUP WITH ALL PHYSICIANS SCHEDULED, [facility] WILL PROVIDE ALL OF YOUR HOME OXYGEN EQUIPMENT YOU HAVE REQUESTED. Follow up with: BAYLEE RUIZ [ACTIVE STAFF] - 03/14/18 (KEEP APPOINTMENT WITH DR. Quentin RUIZ) CHASIDY MCGINNIS MD [NON-STAFF PHY W/O PRIVILEGES] - 03/13/18 8:00 am NAYANA ROMERO [CONSULTING PHYSICIAN] - 04/04/18 2:00 pm (They will call you if able to see you sooner) SHEYLA CEJA MD [Emergency Provider] - 03/15/18 9:15 am ([facility] OFFICE) Forms: CHF Discharge Instructions, Work/School Release Form
--- NOTE | 2018-03-06 12:53 | PCM.NOTE ---
Date and Time: 03/06/18 1243 Subjective Assessment: doing better - Review of Systems Constitutional: No Fever, No Chills Eyes: No Symptoms Ears, Nose, & Throat: No Symptoms Respiratory: Orthopnea, Short Of Breath, Wheezing, No Cough Cardiac: No Chest Pain, No Edema, No Syncope Abdominal/Gastrointestinal: No Abdominal Pain, No Nausea, No Vomiting, No Diarrhea Genitourinary Symptoms: No Dysuria Musculoskeletal: No Back Pain, No Neck Pain Skin: No Rash Neurological: No Dizziness, No Focal Weakness, No Sensory Changes Psychological: No Symptoms Endocrine: No Symptoms Hematologic/Lymphatic: No Symptoms Immunological/Allergic: No Symptoms Objective Exam General Appearance: no apparent distress, alert Neurologic Exam: alert, oriented x 3, cooperative, normal mood/affect, nml cerebellar function, sensation nml, No motor deficits Skin Exam: normal color, warm, dry Eye Exam: PERRL, EOMI, eyes nml inspection Ears, Nose, Throat Exam: normal ENT inspection, pharynx normal, moist mucous membranes Neck Exam: normal inspection, non-tender, supple, full range of motion Respiratory Exam: normal breath sounds, diminished breath sounds, prolonged expirations, crackles/rales, rhonchi, No respiratory distress Cardiovascular Exam: regular rate/rhythm, normal heart sounds Gastrointestinal/Abdomen Exam: soft, No tenderness, No mass Extremity Exam: normal inspection, normal range of motion Back Exam: normal inspection, normal range of motion, No CVA tenderness, No vertebral tenderness Male Genitalia Exam: deferred Rectal Exam: deferred OBJECTIVE DATA Vital Signs: Vital Signs - 24 hr Temp Pulse Resp BP Pulse Ox 03/06/18 11:17 26 H 89 L 03/06/18 11:00 96.3 F 94 H 26 H 121/76 94 L 03/06/18 10:56 96 H 18 92 L 03/06/18 10:00 97.3 F 94 H 22 108/80 92 L 03/06/18 09:45 87 20 89 L 03/06/18 09:00 91 H 20 130/77 93 L 03/06/18 08:00 97.8 F 85 24 133/87 93 L 03/06/18 07:00 86 22 129/94 93 L 03/06/18 06:34 98 H 24 95 03/06/18 06:00 89 23 161/95 96 05/07/18 05:00 81 25 H 127/74 93 L 05/07/18 04:00 97.9 F 94 H 23 134/86 93 L 05/07/18 03:00 91 H 27 H 106/80 92 L 05/18 02:00 92 H 27 H 129/82 94 L 05/07/18 01:00 91 H 25 H 129/86 92 L 05/07/18 00:00 98.0 F 88 24 117/69 93 L 05/06/18 23:00 91 H 24 129/91 93 L 05/06/18 22:00 90 27 H 99/78 95 05/06/18 21:00 89 21 116/86 94 L 05/06/18 20:00 101 H 05//18 19:58 98.2 F 101 H 23 134/90 94 L 05/06/18 18:59 100 H 28 H 94 L 05/06/18 18:50 88 21 119/79 92 L 05/06/18 17:56 112 H 21 130/93 93 L 05/06/18 17:00 94 H 19 116/83 91 L 05/06/18 16:00 96 H 19 164/73 94 L 05/06/18 15:42 96 H 18 95 05/06/18 15:00 92 H 21 133/78 93 L 05/06/18 14:00 99 H 21 116/75 93 L 05/06/18 13:00 110 H 21 127/85 93 L Oxygen-Last 24 hours O2 Percentage 2 Liters = 28% O2 Percentage 5 Liters = 40% O2 Percentage 2 Liters = 28% O2 Percentage 5 Liters = 40% O2 Percentage 5 Liters = 40% O2 Percentage 5 Liters = 40% O2 Percentage 5 Liters = 40% O2 Percentage 5 Liters = 40% O2 Percentage 5 Liters = 40% O2 Percentage 5 Liters = 40% O2 Percentage 5 Liters = 40% O2 Percentage 3 Liters = 32% O2 Percentage 3 Liters = 32% O2 Percentage 3 Liters = 32% O2 Percentage 3 Liters = 32% O2 Percentage 3 Liters = 32% O2 Percentage 3 Liters = 32% O2 Percentage 3 Liters = 32% O2 Percentage 3 Liters = 32% O2 Percentage 3 Liters = 32% O2 Percentage 3 Liters = 32% O2 Percentage 3 Liters = 32% O2 Percentage 3 Liters = 32% O2 Percentage 3 Liters = 32% Pain Assessment - Last Documented Pain Intensity 3 Pain Scale Used 0-10 Pain Scale Intake and Output: Intake & Output 03/04/18 03/05/18 03/06/18 03/07/18 11:59 11:59 11:59 11:59 Intake Total 772 4257 Output Total 2680 2600 450 Balance -1908 1657 -450 Weight 126.2 kg 125.3 kg Lab Results: Accuchecks Date 03/06/18 Date 03/05/18 Time 09:00 Time 20:01 Accucheck Value: 100 Lab Results-Last 24 Hours 03/06/18 03/06/18 03/06/18 Range/Units 08:17 08:17 09:34 WBC 7.7 (4.0-10.5) K/mm3 RBC 5.30 (4.1-5.6) M/mm3 Hgb 16.5 (12.5-18.0) gm/dl Hct 49.4 (42-50) % MCV 93.2 (78-100) fl MCH 31.1 (26-32) pg MCHC 33.4 (32-36) g/dl RDW 12.8 (11.5-14.0) % Plt Count 156 (150-450) K/mm3 MPV 11.1 H (6-9.5) fl Sodium 135 L (137-145) mmol/L Potassium 3.8 (3.5-5.1) mmol/L Chloride 100 (98-107) mmol/L Carbon Dioxide 25 (22-30) mmol/L Anion Gap 12.4 (5-15) MEQ/L BUN 11 (9-20) mg/dL Creatinine 0.63 L (0.66-1.25) mg/dL Estimated GFR > 60.0 ML/MIN Glucose 128 H (74-106) mg/dL Calcium 8.6 (8.4-10.2) mg/dL Total Bilirubin 1.10 (0.2-1.3) mg/dL AST 25 (17-59) U/L ALT 20 (0-50) U/L Alkaline Phosphatase 65 (38-126) U/L NT-Pro-B Natriuret Pep 2130 H (0-900) pg/mL Serum Total Protein 6.5 (6.3-8.2) g/dL Albumin 3.4 L (3.5-5.0) g/dL Triglycerides 79 (30-150) mg/dL Cholesterol 129 (50-200) mg/dL LDL Cholesterol 75 (30-100) mg/dL HDL Cholesterol 41 (40-60) mg/dL Heart Disease Risk Ratio 3.1 Radiology Exams: Radiology Procedures Category Date Time Status ECHO W/2D AND DOPPLER [US] Routine Exams 03/06/18 10:00 Taken Multi-Disciplinary Progress Notes: Multi-Disciplinary Progress Notes 03/06/18 11:52 Respiratory Note by Alicia Reich 1100 N/C 2LPM AT REST SPO2 92%. TAKEN OFF O2 ROOM AIR AT REST SPO2 88%. PLACED BACK ON 2LPM SPO2 AT REST 92 Initialized on 03/06/18 11:52 - END OF NOTE 03/06/18 10:00 (created 03/06/18 10:04) Case Management Note by Cydney Randall DISCHARGE PLAN REVIEWED, PROVIDES SELF CARE, INDEPENDENT WITH ALL ADL'S. PLAN TO RETURN HOME WITH TO PRE EPISODIC LEVEL OF FNX. DECLINED ADDNL NEEDS FOR DISCHARGE. Initialized on 03/06/18 10:04 - END OF NOTE Assessment/Plan (1) Atrial fibrillation Current Visit: Yes Status: Acute Onset Date: ~03/05/18 Qualifiers: Atrial fibrillation type: paroxysmal Qualified Code(s): I48.0 - Paroxysmal atrial fibrillation Code(s): I48.91 - UNSPECIFIED ATRIAL FIBRILLATION (2) COPD (chronic obstructive pulmonary disease) with acute bronchitis Current Visit: Yes Status: Acute Onset Date: ~03/05/18 Code(s): J44.0 - CHRONIC OBSTRUCTIVE PULMON DISEASE W ACUTE LOWER RESP INFCT; J20.9 - ACUTE BRONCHITIS, UNSPECIFIED (3) Type 2 diabetes mellitus Current Visit: Yes Status: Chronic Onset Date: ~03/05/18 Qualifiers: Diabetes mellitus complication status: with hypoglycemia Diabetes mellitus complication detail: without coma (4) History of hemochromatosis Current Visit: Yes Status: Chronic Onset Date: ~03/05/18 Code(s): Z86.39 - PERSONAL HISTORY OF ENDO, NUTRITIONAL AND METABOLIC DISEASE (5) Hypoxemia Current Visit: Yes Status: Acute Code(s): R09.02 - HYPOXEMIA
[2018-03-06] MEDS: NICODERM CQ 14 MG TOP SCH (13:00)
[2018-03-06] MEDS ORDERED: Ativan 2 MG/1 ML VIAL IV PRN (14:26)
[2018-03-06] MEDS ORDERED: Cardizem CD 240 MG PO SCH (15:00)
--- NOTE | 2018-03-06 15:11 | CONS ---
CONSULT DATE: 03/06/2018 HISTORY: Felix Watkins is a 52 year-old male with significant pulmonary problems who has been hospitalized initially with left lower extremity swelling. According to the family the patient has been experiencing swollen left leg for about a week along with palpitations. He came to the emergency room at [facility] where he was noted to also have elevated D-dimer. CT chest was performed with contrast which was negative for pulmonary embolism but did show bilateral small pleural effusion. In addition, the patient was noted to have new onset atrial fibrillation. He has been admitted to ICU where his weight was controlled although the patient remains in atrial fibrillation. At the time of my evaluation he appears mildly tachypneic during conversation. PAST MEDICAL HISTORY: Positive for history of chronic obstructive pulmonary disease and sleep apnea. He uses CPAP at home. He does not have supplemental oxygen. The patient's last sleep study was on 01/15/2015 which was reviewed. The patient reports that he has seen Dr. Hua, low emission automobile designer, for phlebotomy x2 in the past few months. His hemoglobin was well over 19 which has improved to 16 1/2. The patient has history of diabetes mellitus, hyperlipidemia along with hypertension. PAST SURGICAL HISTORY: No recent surgery. PERSONAL AND SOCIAL HISTORY: The patient has smoked one and a half packs of cigarettes until this hospitalization. He also consumes 12 cans of beer a day. MEDICATIONS: Current medications are reviewed. ALLERGIES: NKDA. PHYSICAL EXAMINATION: This is a middle age male who appears mildly tachypneic, able to speak although appears to have mild hoarseness of voice. Current heart rate is 84, irregular, blood pressure 145/82 mm of Mercury. Oxygen saturation 94% on nasal cannula. HEENT: Normocephalic. Oral exam is limited. NECK: Short. CVS: First and second heart sounds regular. RESPIRATORY: Shows significantly diminished breath sounds, scattered rhonchi are heard. ABDOMEN: Obese. EXTREMITIES: Left lower extremity especially below knee appears more swollen than right. LABORATORY DATA AND TESTS: Cholesterol 129, triglycerides 79, sodium 135, potassium 3.8, chloride 100, bicarb 25, glucose 128, BUN 11, creatinine 0.6. White blood cell count 7.7, hemoglobin 16.5, hematocrit 49, PLT 156,000. Cultures are negative. CT chest was reviewed. Troponin I has been negative. ASSESSMENT: This is a 52 year old male admitted with: 1) New onset atrial fibrillation with shortness of breath which appears to be multifactorial due to underlying chronic obstructive pulmonary disease as well as cardiac etiology. 2) Left lower extremity swelling; rule out deep venous thrombosis. There is a strong suspicion although pulmonary embolism protocol was negative, that a small thrombus from the lower extremity may have caused embolization leading to atrial fibrillation. 3) SLEEP APNEA. 4) SECONDARY POLYCYTHEMIA. 5) HYPERTENSION. 6) DIABETES. 7) HYPERLIPIDEMIA. 8) NICOTINE ADDICTION AND ALCOHOL ABUSE. RECOMMENDATIONS: I agree with present treatment. The patient would benefit from cardiology consultation. Apparently the same has been set up as outpatient. Echocardiogram if this has not been done. He would certainly benefit from lower extremity venous Doppler and will also get carotid Doppler given the patient's age. Need for smoking cessation was discussed. The patient appears to be fairly stable right now although is in perfect window for delirium tremens and will increase Ativan to 1 mg every four hours PRN. He certainly needs monitoring for at least another 36 to 48 hours until the delirium tremens peak period is over to prevent the patient from going in withdrawal. PFT can be obtained at a later point. The patient appears to be compliant with CPAP and would benefit from addition of supplemental oxygen not only from cardiac standpoint but also from secondary polycythemia. I will continue to follow in outpatient setting.
[2018-03-06] MEDS: VITAMIN B-1 100 MG PO SCH (16:24)
--- NOTE | 2018-03-06 16:33 | XRAY ---
Indication: Left leg swelling. Atrial fibrillation. Two-dimensional sonogram and color Doppler imaging of the major venous vessels of the left and right leg was performed. Comparison: None No thrombus seen in the examined deep venous vessels of the left and right leg including greater saphenous veins. Veins demonstrate normal compressibility. Venous waveforms are normal with and without augmentation. Impression: Left and right legs negative for DVT.
--- NOTE | 2018-03-06 16:39 | XRAY ---
Indication: High risk for stroke. 2-dimensional sonogram and color Doppler imaging of the carotid arteries of the neck performed. Comparison: None Examination of the right carotid circulation negative for focal arteriosclerotic plaquing, critical stenosis, or obstruction. PSV of the CCA is 32 cm/s. PSV of the ICA is 56 cm/s. ICA/CCA ratio is 1.7. Normal antegrade vertebral artery flow. Examination of the left carotid circulation also widely patent. PSV of the CCA is 45 cm/s. PSV of the ICA is 52 cm/s. ICA/CCA ratio is 1.2. Normal antegrade vertebral artery flow. Impression: Sonogram of the left and right carotid arteries of the neck negative. Velocity measurements and ratios are also negative for hemodynamically significant flow-limiting stenosis.
[2018-03-06] MEDS: PROVENTIL 2.5 MG/3 ML NEB IH SCH (19:55)
[2018-03-06] MEDS: ZOCOR 20MG PO SCH (21:50)
[2018-03-06] MEDS: PROVENTIL COMMON CANISTER IH PRN (23:00)
[2018-03-07] MEDS: PROVENTIL COMMON CANISTER IH PRN (05:45)
[2018-03-07] MEDS: PROVENTIL 2.5 MG/3 ML NEB IH SCH ×2 (07:07→11:08)
[2018-03-07] MEDS: Spiriva 18 Mcg/Cap Inhaler IH SCH (07:08)
[2018-03-07] MEDS ORDERED: Glucophage 500 MG PO SCH (08:00)
[2018-03-07] MEDS: Coreg 3.125 MG PO SCH (09:25)
[2018-03-07] MEDS: Cardizem CD 240 MG PO SCH (09:26)
[2018-03-07] MEDS: ECOTRIN 81 MG PO SCH (09:27)
[2018-03-07] MEDS: ELIQUIS 5 MG TABLET PO SCH (09:27)
[2018-03-07] MEDS: Maxzide-25MG Tablet PO SCH (09:28)
[2018-03-07] MEDS: Paxil 12.5MG CR PO SCH (09:28)
[2018-03-07] MEDS: ROCEPHIN 1 Gm-D5w 50 ml Bag** 1 G/50 ML IVPB IV SCH (09:29)
[2018-03-07] MEDS: Protonix 40MG Tablet PO SCH (09:29)
[2018-03-07] MEDS: Zestril 5 MG PO SCH (09:30)
[2018-03-07] MEDS: VITAMIN B-1 100 MG PO SCH (09:30)
[2018-03-07 12:55] VITALS: BP 105/65; PULSE 82; O2SAT 93
[2018-03-07] MEDS: NICODERM CQ 14 MG TOP SCH (14:57)
[2018-03-07] MEDS: Ativan 1 MG PO PRN (14:59)
[2018-03-10] MEDS ORDERED: NON-FORMULARY ITEM (Dulaglutide [Trulicity] 1.5 ml) IJ SCH (08:00)
--- NOTE | 2018-03-10 15:46 | ECHO ---
DATE OF PROCEDURE: 03/06/2018 CLINICAL INFORMATION: Atrial fibrillation with rapid ventricular response new in onset. The M-mode 2D, and Doppler echocardiogram including color flow Doppler shows left ventricle is dilated moderately with a dimension of 6.6 cm. The septal wall thickness is increased at 1.0 cm. The left ventricular posterior wall thickness is normal at 1.0 cm. The left ventricular systolic function is moderate to severely decreased with an ejection fraction between 25 and 30%. The right ventricular systolic function appear to be moderately decreased. There is no apical thrombus present. The left atrium is mildly dilated at 4.1 cm. There is evidence of ASD or PFO with a left to right shunt. The right atrium is normal. The aortic valve opens well. The mitral valve is thickened. There is mild to moderate mitral regurgitation present. There is moderate to severe tricuspid regurgitation. The right ventricular systolic pressure is elevated at 47 mm of Mercury consistent with moderate pulmonary hypertension. The pulmonic valve was not well visualized. The aortic root is normal at 3.2 cm. There is no pericardial effusion present. IMPRESSION: 1) MODERATELY SEVERE LEFT VENTRICULAR SYSTOLIC DYSFUNCTION. 2) MODERATE DILATATION LEFT VENTRICLE. 3) MILD TO MODERATE MITRAL REGURGITATION. 4) MODERATE TO SEVERE TRICUSPID REGURGITATION. 5) MODERATE PULMONARY HYPERTENSION. 6) THERE IS EVIDENCE OF ASD (ATRIAL SEPTAL DEFECT) VERSUS PFO (PATENT FORAMEN OVALE).
== END 2018-03-07 15:10 | disposition home or self-care (01) ==
LOC: ED 22:17 → ICU 03-05 01:25 → MED SURG 03-06 14:34
PROVIDERS: ADMIT General Practice; ATTEND General Practice
DX: I48.0 Paroxysmal atrial fibrillation (principal); J44.9 Chronic obstructive pulmonary disease, unspecified; J20.9 Acute bronchitis, unspecified; E11.65 Type 2 diabetes mellitus with hyperglycemia; Z79.4 Long term (current) use of insulin; K21.9 Gastro-esophageal reflux disease without esophagitis; I10 Essential (primary) hypertension; M19.90 Unspecified osteoarthritis, unspecified site; F41.9 Anxiety disorder, unspecified; G47.30 Sleep apnea, unspecified; D75.1 Secondary polycythemia; E78.5 Hyperlipidemia, unspecified; F10.10 Alcohol abuse, uncomplicated; R09.02 Hypoxemia; Z79.01 Long term (current) use of anticoagulants; M79.89 Other specified soft tissue disorders; Z79.899 Other long term (current) drug therapy; Z86.39 Personal history of other endocrine, nutritional and metabolic disease; Z87.891 Personal history of nicotine dependence
CPT/HCPCS: 36000; 36415; 71045; 71260; 80053; 80061; 81000; 83605; 83721; 83880; 84134; 84484; 85025; 85027; 85379; 87040; 93005; 93041; 93268; 93306; 93880; 93970; 94150; 94640; 94660; 94760; 94762; 96360; 96361; 96365; 96374; 99285; J7609; J0696; A9270-GY; G0378

== ENCOUNTER 2018-09-19 23:13 | Emergency (ER) | payer BC ==
--- NOTE | 2018-09-19 23:30 | ERPHSYRPT ---
- History of Present Illness Time Seen by Provider: 09/19/18 23:30 Source: patient, family Physician History: 53 y/o white male presents with right groin pain intermittently for 2 weeks. pain worsened throughout the day. tonight pain is "like being kicked in the sack ". pain radiates into right flank. pt underwent cardiac pacemaker placement last week. he denies cp and denies soa. denies hematuria and denies dysuria. denies abd pain. no n/v/d. no injury. Timing/Duration: week(s) (2), sudden (worse today and tonight), worse (today and tonight) Quality: sharpness, stabbing, throbbing Onset Location: right flank, scrotal (right), right testicle Pain Radiation: right flank Associated Symptoms: No abdominal pain, No fever, No chills, No diaphoresis, No nausea, No vomiting, No dysuria, No nocturia, No polyuria, No urinary frequency Prior abdominal problems: none Sexual intercourse history: non-contributory Allergies/Adverse Reactions: No Known Drug Allergies Allergy (Unverified 03/04/18 22:34) Home Medications: Aspirin EC 81 mg [Ecotrin 81 mg] 81 mg PO DAILY 03/04/18 [History] Dulaglutide [Trulicity] 1.5 ml IJ WEEKLY 03/04/18 [History] Metformin HCl 500 mg [Glucophage 500 MG] 1,000 mg PO BID 03/04/18 [History ] PANTOPRAZOLE 40 mg Tablet [Protonix 40MG Tablet] 40 mg PO DAILY 03/04/18 [ History] Paroxetine HCl [Paroxetine Cr] 37.5 mg PO DAILY 03/04/18 [History] Triamterene/Hydrochlorothiazid [Triamterene-Hctz 37.5-25 mg Cp] 1 each PO DAILY 03/04/18 [History] Hx Tetanus, Diphtheria Vaccination/Date Given: Yes Hx Influenza Vaccination/Date Given: Yes Hx Pneumococcal Vaccination/Date Given: No - Past Medical History Pertinent Past Medical History: Yes Neurological History: No Pertinent History ENT History: No Pertinent History Cardiac History: Hypertension Respiratory History: COPD Endocrine Medical History: Diabetes Type II Musculoskeletal History: Arthritis GI Medical History: GERD History: No Pertinent History Psycho-Social History: Anxiety Male Reproductive Disorders: No Pertinent History - Past Surgical History Past Surgical History: Yes Neuro Surgical History: No Pertinent History Cardiac: No Pertinent History Respiratory: No Pertinent History Gastrointestinal: No Pertinent History Genitourinary: No Pertinent History Musculoskeletal: Orthopedic Surgery Male Surgical History: No Pertinent History Other Surgical History: left and right shoulder surgery - Social History Smoking Status: Current every day smoker How long have you smoked: 20 years Drug Use: none - Review of Systems Constitutional: No Symptoms Eyes: No Symptoms Ears, Nose, & Throat: No Symptoms Respiratory: No Symptoms Cardiac: No Symptoms Abdominal/Gastrointestinal: No Symptoms, No Abdominal Pain, No Nausea, No Vomiting, No Diarrhea Genitourinary Symptoms: Flank Pain (right), No Hematuria, No Testicle Pain ( right) Musculoskeletal: No Symptoms Skin: No Symptoms Neurological: No Symptoms Psychological: No Symptoms Endocrine: No Symptoms Hematologic/Lymphatic: No Symptoms - Nursing Vital Signs Nursing Vital Signs: Initial Vital Signs Temperature 98.5 F 09/19/18 23:13 Pulse Rate 72 09/19/18 23:13 Respiratory Rate 16 09/19/18 23:13 Blood Pressure 128/85 09/19/18 23:13 O2 Sat by Pulse Oximetry 95 09/19/18 23:13 Pain Scale Pain Intensity 7 - Physical Exam General Appearance: mild distress, alert, anxiety Eye Exam: PERRL/EOMI, eyes nml inspection Ears, Nose, Throat Exam: normal ENT inspection, moist mucous membranes Neck Exam: normal inspection, non-tender, supple, full range of motion Respiratory Exam: normal breath sounds, lungs clear, airway intact, No chest tenderness, No respiratory distress, No accessory muscle use, No rhonchi, No wheezing, No stridor Cardiovascular Exam: regular rate/rhythm, normal heart sounds, normal peripheral pulses Gastrointestinal/Abdomen Exam: soft, normal bowel sounds, No tenderness, No guarding, No rebound Rectal Exam: not done Male Genital Exam: normal genitalia, no hernia, epididymal tenderness (right), scrotum tenderness (R), testicular tenderness (R) (no mass), No inguinal lymphadenopathy Back Exam: normal inspection, normal range of motion, No CVA tenderness, No vertebral tenderness Extremity Exam: normal inspection, normal range of motion, pelvis stable Neurologic Exam: alert, oriented x 3, cooperative, battery technician II-XII nml as tested Skin Exam: normal color, warm, dry Lymphatic Exam: adenopathy SpO2 Interpretation: normal Oxygen Delivery: Room Air - Course Nursing assessment & vital signs reviewed: Yes Ordered Tests: Active Orders 24 hr Category Date Time Status Clean Catch Urine Specimen STAT Care 09/19/18 23:40 Active IV Insertion STAT Care 09/19/18 23:40 Active ABDOMEN AND PELVIS W/0 CONTRAS [CT] Stat Exams 09/19/18 23:40 Taken AMYLASE Stat Lab 09/19/18 23:54 Completed CBC W DIFF Stat Lab 09/19/18 23:54 Completed CMP Stat Lab 09/19/18 23:54 Completed LIPASE Stat Lab 09/19/18 23:54 Completed Lactic Acid Stat Lab 09/19/18 23:50 Completed Manual Differential NC Stat Lab 09/19/18 23:54 Completed UA W/RFX UR CULTURE Stat Lab 09/19/18 23:55 Completed Medication Summary Discontinued Medications Generic Name Dose Route Start Last Admin Trade Name Freq PRN Reason Stop Dose Admin Sodium Chloride 1,000 mls @ 999 mls/hr 09/19/18 23:40 09/19/18 23:53 Sodium Chloride 0.9% 1000 Ml IV 09/20/18 00:40 999 mls/hr .Q1H1M STA Administration Sodium Chloride Confirm 09/19/18 23:53 Sodium Chloride 0.9% 1000 Ml Administered 09/19/18 23:54 Dose 1,000 mls @ ud .ROUTE .STK-MED ONE Lab/Rad Data: Laboratory Result Diagrams 09/19/18 23:54 09/19/18 23:54 Laboratory Results 09/19/18 09/19/18 09/19/18 Range/Units 23:55 23:54 23:54 WBC 7.9 (4.0-10.5) K/mm3 RBC 5.38 (4.1-5.6) M/mm3 Hgb 17.6 (12.5-18.0) gm/dl Hct 50.2 H (42-50) % MCV 93.3 (78-100) fl MCH 32.7 H (26-32) pg MCHC 35.1 (32-36) g/dl RDW 12.1 (11.5-14.0) % Plt Count 187 (150-450) K/mm3 MPV 10.9 H (6-9.5) fl Absolute Granulocytes 3.02 (1.4-6.9) Sodium 137 (137-145) mmol/L Potassium 3.5 (3.5-5.1) mmol/L Chloride 98 (98-107) mmol/L Carbon Dioxide 30 (22-30) mmol/L Anion Gap 12.8 (5-15) MEQ/L BUN 15 (9-20) mg/dL Creatinine 0.80 (0.66-1.25) mg/dL Estimated GFR > 60.0 ML/MIN Glucose 180 H (74-106) mg/dL Lactic Acid (0.4-2.0) Calcium 9.7 (8.4-10.2) mg/dL Total Bilirubin 0.70 (0.2-1.3) mg/dL AST 29 (17-59) U/L ALT 27 (0-50) U/L Alkaline Phosphatase 78 (38-126) U/L Serum Total Protein 7.4 (6.3-8.2) g/dL Albumin 4.3 (3.5-5.0) g/dL Amylase 53 (30-110) U/L Lipase 96 (23-300) U/L Urine Color STRAW (YELLOW) Urine Appearance CLEAR (CLEAR) Urine pH 6.0 (5-6) Ur Specific Somers 1.005 (1.005-1.025) Urine Protein NEGATIVE (Negative) Urine Ketones NEGATIVE (NEGATIVE) Urine Blood NEGATIVE (0-5) Jose/ul Urine Nitrite NEGATIVE (NEGATIVE) Urine Bilirubin NEGATIVE (NEGATIVE) Urine Urobilinogen NEGATIVE (0-1) mg/dL Ur Leukocyte Esterase NEGATIVE (NEGATIVE) Urine WBC (Auto) NONE (0-5) /HPF Urine RBC (Auto) NONE SEEN (0-2) /HPF U Epithel Cells (Auto) NONE (FEW) /HPF Urine Bacteria (Auto) NONE SEEN (NEGATIVE) /HPF Urine Mucus (Auto) SLIGHT (NEGATIVE) /HPF Urine Culture Reflexed NO (NO) Urine Glucose NEGATIVE (NEGATIVE) mg/dL 18 Range/Units 23:50 WBC (4.0-10.5) K/mm3 RBC (4.1-5.6) M/mm3 Hgb (12.5-18.0) gm/dl Hct (42-50) % MCV (78-100) fl MCH (26-32) pg MCHC (32-36) g/dl RDW (11.5-14.0) % Plt Count (150-450) K/mm3 MPV (6-9.5) fl Absolute Granulocytes (1.4-6.9) Sodium (137-145) mmol/L Potassium (3.5-5.1) mmol/L Chloride (98-107) mmol/L Carbon Dioxide (22-30) mmol/L Anion Gap (5-15) MEQ/L BUN (9-20) mg/dL Creatinine (0.66-1.25) mg/dL Estimated GFR ML/MIN Glucose (74-106) mg/dL Lactic Acid 1.8 (0.4-2.0) Calcium (8.4-10.2) mg/dL Total Bilirubin (0.2-1.3) mg/dL AST (17-59) U/L ALT (0-50) U/L Alkaline Phosphatase (38-126) U/L Serum Total Protein (6.3-8.2) g/dL Albumin (3.5-5.0) g/dL Amylase (30-110) U/L Lipase (23-300) U/L Urine Color (YELLOW) Urine Appearance (CLEAR) Urine pH (5-6) Ur Specific Somers (1.005-1.025) Urine Protein (Negative) Urine Ketones (NEGATIVE) Urine Blood (0-5) Jose/ul Urine Nitrite (NEGATIVE) Urine Bilirubin (NEGATIVE) Urine Urobilinogen (0-1) mg/dL Ur Leukocyte Esterase (NEGATIVE) Urine WBC (Auto) (0-5) /HPF Urine RBC (Auto) (0-2) /HPF U Epithel Cells (Auto) (FEW) /HPF Urine Bacteria (Auto) (NEGATIVE) /HPF Urine Mucus (Auto) (NEGATIVE) /HPF Urine Culture Reflexed (NO) Urine Glucose (NEGATIVE) mg/dL - Progress Progress: pain not gone completely, re-examined Progress Note: 09/20/18 00:59 ct scan abd/pelvis-mild bilat perinephric stranding.thickening of urinary bladder wall. Counseled pt/family regarding: lab results, diagnosis, need for follow-up, rad results - Departure Time of Disposition: 01:01 Departure Disposition: Home Clinical Impression: Cystitis Condition: Stable Critical Care Time: No Referrals: SHEYLA STRELING MD [Primary Care Provider] - Additional Instructions: call radiology department this morning to schedule your ultrasound of right groin/scrotum. follow up with primary doctor for results. take medications as prescribed. Prescriptions: Oxycodone HCl/Acetaminophen [Percocet 5-325 mg Tablet] 1 each PO Q8H PRN PRN #6 tablet MDD 3 PRN Reason: Pain Ciprofloxacin [Cipro 500 MG] 500 mg PO BID #14 tablet
[2018-09-19] MEDS ORDERED: Sodium Chloride 0.9% 1000 ML 1,000 ML IV STA (23:40)
[2018-09-19] MEDS ORDERED: Sodium Chloride 0.9% 1000 ML 1,000 ML ONE (23:53)
[2018-09-19 23:57] LABS: Granulocyte Absolute (ANC) 3.02 (1.4-6.9); Hematocrit 50.2 % (42-50); Hemoglobin 17.6 gm/dl (12.5-18.0); Mean Cell Volume 93.3 fl (78-100); Mean Corpuscular Hemoglobin 32.7 pg (26-32); Mean Corpuscular Hgb Concent. 35.1 g/dl (32-36); Mean Platelet Volume 10.9 fl (6-9.5); Platelet Count 187 K/mm3 (150-450); Red Blood Count 5.38 M/mm3 (4.1-5.6); Red Cell Distribution Width 12.1 % (11.5-14.0); White Blood Count 7.9 K/mm3 (4.0-10.5)
[2018-09-20 00:01] LABS: Appearance CLEAR (CLEAR); Bilirubin NEGATIVE (NEGATIVE); Blood NEGATIVE Ery/ul (0-5); Glucose NEGATIVE (NEGATIVE); Ketones NEGATIVE (NEGATIVE); Leukocyte Esterase NEGATIVE (NEGATIVE); Nitrite NEGATIVE (NEGATIVE); Protein,Urine Dip NEGATIVE (Negative); Specific Gravity 1.005 (1.005-1.025); Urobilinogen NEGATIVE mg/dL (0-1)
[2018-09-20 00:15] LABS: ALBUMIN 4.3 g/dL (3.5-5.0); ALKALINE PHOSPHATASE 78 U/L (38-126); AMYLASE 53 U/L (30-110); ANION GAP 12.8 MEQ/L (5-15); BLOOD UREA NITROGEN 15 mg/dL (9-20); CHLORIDE 98 mmol/L (98-107); Calcium 9.7 mg/dL (8.4-10.2); Carbon Dioxide 30 mmol/L (22-30); Glucose 180 mg/dL (74-106); LIPASE 96 U/L (23-300); Potassium 3.5 mmol/L (3.5-5.1); SGOT/AST 29 U/L (17-59); SGPT/ALT 27 U/L (0-50); SODIUM 137 mmol/L (137-145); Total Protein 7.4 g/dL (6.3-8.2)
[2018-09-20 00:21] VITALS: BP 105/79; PULSE 60; O2SAT 97
[2018-09-20] MEDS ORDERED: PERCOCET TABLET 5/325MG PO STA (01:07)
[2018-09-20] MEDS ORDERED: Cipro 500 MG PO ONE (01:07)
[2018-09-20] MEDS ORDERED: PERCOCET TABLET 5/325MG ONE ×2 (01:10→01:17)
[2018-09-20] MEDS ORDERED: Cipro 500 MG ONE (01:10)
[2018-09-20 01:20] LABS: ATYPICAL LYMPHS 14 %; Eosinophil 4 % (0.00-3.0); Lymphocytes 34 % (24-44); Monocyte 4 % (0.0-12.0); Neutrophils 44 % (36.-66.); Total Cells Counted 100
[2018-09-20 01:21] LABS: Platelet Estimate NORMAL (NORMAL)
--- NOTE | 2018-09-20 09:38 | XRAY ---
Indication: Right flank/groin pain. Multiple contiguous axial images obtained through the abdomen and pelvis without contrast using renal stone protocol. Comparison: None Lung bases demonstrate mild bibasilar dependent atelectasis and minimal lingular fibrosis/scarring. A few left lower lobe and distal paraesophageal calcified granulomas. No renal calculus or evidence for obstructive uropathy in either system. 15 mm right mid renal exophytic cyst. Mild nonspecific bilateral perinephric stranding. Urinary bladder demonstrates mild circumferential wall thickening either from incomplete distention versus cystitis. Stomach is distended with food/fluid. Noncontrasted stomach and bowel loops appear nonobstructed. Normal appendix. Scattered splenic calcified granulomas. Remaining liver, gallbladder, pancreas, spleen, adrenal glands, kidneys, ureters, and bladder appear unremarkable for noncontrast exam. Mild aortoiliac calcifications without AAA. Osseous structures intact with minimal degenerative changes throughout the spine. Tiny fatty umbilical hernia and small bilateral fatty inguinal hernias. Impression: 1. Negative renal calculus or evidence for obstructive uropathy. 2. Mild bladder wall thickening either incomplete distention versus cystitis. Also nonspecific bilateral perinephric stranding. Correlate clinically. 3. Incidental right renal cyst, tiny fatty umbilical hernia, small bilateral fatty inguinal hernias, and evidence for old granulomatous disease. Comment: Preliminary interpretation was made by [facility]. No critical discrepancy. CT DI 28.13
== END 2018-09-20 01:22 | disposition home or self-care (01) ==
LOC: ED 23:13
DX: N30.90 Cystitis, unspecified without hematuria (principal); N50.811 Right testicular pain; N50.82 Scrotal pain; Z95.0 Presence of cardiac pacemaker; Z79.899 Other long term (current) drug therapy; E11.9 Type 2 diabetes mellitus without complications; Z79.84 Long term (current) use of oral hypoglycemic drugs
CPT/HCPCS: 36000; 36415; 74176; 80053; 81001; 82150; 83605; 83690; 85025; 96360; 99284; A9270-GY

== ENCOUNTER 2019-03-18 18:30 | Emergency (ER) | payer BC ==
[2019-03-18] MEDS ORDERED: TYLENOL 325 MG PO STA (19:16)
[2019-03-18] MEDS ORDERED: TYLENOL 325 MG ONE (19:35)
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
[2019-03-18 21:06] VITALS: BP 152/90; PULSE 80; O2SAT 94
--- NOTE | 2019-03-19 21:17 | XRAY ---
Exam: 3 views of the left wrist from 03/18/2019. Comparison: None. Indication: Patient fell yesterday, pain on radial side of left wrist. Findings: AP, oblique, and lateral radiographs of the left wrist were obtained. In addition, a couple angled views of the left wrist and carpus were obtained. I see no acute fracture or dislocation. I believe there is some mild soft tissue swelling overlying the lateral aspect of the distal left forearm. Correlate clinically. The carpal scaphoid bone appears intact. There is some mild narrowing of the radiocarpal joint suggesting mild degenerative change. A minimal spur is seen at the distal aspect of the radial styloid. The ulnar styloid process appears intact. The remainder of the carpal bones and carpal joint spaces appears unremarkable. Impression: 1. I see no acute fracture or dislocation of the left wrist. The carpal scaphoid bone appears intact. There is some soft tissue swelling overlying the lateral aspect of the distal left forearm. 2. There appears to be some mild osteoarthritis affecting the radiocarpal joint of the left wrist.
== END 2019-03-18 21:04 | disposition home or self-care (01) ==
LOC: ED 18:30
DX: S60.212A Contusion of left wrist, initial encounter (principal); S63.502A Unspecified sprain of left wrist, initial encounter; V19.9XXA Pedal cyclist (driver) (passenger) injured in unspecified traffic accident, initial encounter; I50.9 Heart failure, unspecified; I10 Essential (primary) hypertension; J44.9 Chronic obstructive pulmonary disease, unspecified; E11.9 Type 2 diabetes mellitus without complications; Z95.0 Presence of cardiac pacemaker
CPT/HCPCS: 73110; 99284; L3908; A9270-GY